=== PATIENT | male | born 1965 | race Caucasian/White ===

== ENCOUNTER 2017-11-16 16:34 | Inpatient (IN) | payer OTHER ==
[~2017-11-16] VITALS: Ht 188 cm; Wt 102.9 kg
[2017-11-16 16:40] VITALS: BP 126/81; PULSE 81; RESP 16; TEMP 98.5; O2SAT 99
[2017-11-16] MEDS ORDERED: OXYC1TAB63 PO (16:55)
[2017-11-16] MEDS ORDERED: SODIUM CHLOR 0.9% 1000 ML INJ 1,000 ML IV SCH (17:07)
[2017-11-16] MEDS ORDERED: MORPHINE SULFATE 4 MG/ML INJ IV PUSH ONE (17:15)
[2017-11-16] MEDS ORDERED: ONDANSETRON HCL 4 MG/2 ML VIAL IVP ONE (17:15)
[2017-11-16 17:28] VITALS: PULSE 70; RESP 18; O2SAT 97
--- NOTE | 2017-11-16 17:28 | PD ---
HPI Chief Complaint: Abdominal Pain Time Seen by Provider: 16:58 Travel History International Travel<30 days: No Contact w/Intl Traveler<30days: No Traveled to known affect area: No History of Present Illness HPI 52-year-old male that presents to the ED for evaluation of lower abdominal pain and bloating. Per patient she's had this for about 3-4 days now. Per patient he has no nausea and vomiting but he states that he gets psychiatric very easily. He states that he is also having bloody stools as well. A of internal hemorrhoids. Per patient about 2 weeks ago he was admitted at the hospital in the [place] and was told that he had diverticulitis with perforated bowel. Apparently per patient he was about to get surgery for the perforated bowel to the decided last minute not to do it. He was admitted for a couple days and given IV antibiotics with resolution of symptoms until 3-4 days ago. Per patient he denies any blood thinners. No urinary issues. He denies any chest pain or shortness of breath. Per patient the pain is not really severe as it was 2 weeks ago but does feel more like bloating. States that he did finish intact. Per patient his been currently 6 out of 10. No allergies to medication. Other medical issues at this time. Has never had a colonoscopy. PFSH Past Medical History Diverticulitis: Yes Tetanus Vaccination: Unknown Influenza Vaccination: No Past Surgical History Other Surgery: Yes (inguinal hernia and scrotal repair) Social History Alcohol Use: No Tobacco Use: No Substance Use: No Allergies-Medications (Allergen,Severity, Reaction): Coded Allergies: No Known Allergies (Unverified , 11/16/17) Reported Meds & Prescriptions Reported Meds & Active Scripts Active Reported Oxycodone-Acetaminophen 5-325 mg Tab 1 Tab PO Q6H PRN Review of Systems Except as stated in HPI: all other systems reviewed are Neg Physical Exam Narrative GENERAL: SKIN: Warm and dry. HEAD: Atraumatic. Normocephalic. EYES: Pupils equal and round. No scleral icterus. No injection or drainage. ENT: No nasal bleeding or discharge. Mucous membranes pink and moist. Tongue is midline. No uvula deviation. NECK: Trachea midline. No JVD. CARDIOVASCULAR: Regular rate and rhythm. No murmurs, S3, S4. RESPIRATORY: No accessory muscle use. Clear to auscultation. Breath sounds equal bilaterally. GASTROINTESTINAL: Abdomen soft, patient has reproducible pain on the lower abdomen with slight distention noted. Hepatic and splenic margins not palpable. MUSCULOSKELETAL: Extremities without clubbing, cyanosis, or edema. No obvious deformities. NEUROLOGICAL: Awake and alert. No obvious cranial nerve deficits. Motor grossly within normal limits. Five out of 5 muscle strength in the arms and legs. Normal speech. PSYCHIATRIC: Appropriate mood and affect; insight and judgment normal. Data Data Last Documented VS Vital Signs Date Time Temp Pulse Resp B/P (MAP) Pulse Ox O2 Delivery O2 Flow Rate FiO2 11/16/17 17:28 70 18 97 Room Air 11/16/17 16:40 98.5 126/81 (96) Orders Orders Complete Blood Count With Diff (11/16/17 17:07) Comprehensive Metabolic Panel (11/16/17 17:07) Lipase (11/16/17 17:07) Lactic Acid (11/16/17 17:07) Prothrombin Time / Inr (Pt) (11/16/17 17:07) Act Partial Throm Time (Ptt) (11/16/17 17:07) Urinalysis - C+S If Indicated (11/16/17 17:07) Ct Abd/Pel W Iv Contrast(Rout) (11/16/17 17:07) Iv Access Insert/Monitor (11/16/17 17:07) Ecg Monitoring (11/16/17 17:07) Oximetry (11/16/17 17:07) Morphine Inj (Morphine Inj) (11/16/17 17:15) Ondansetron Inj (Zofran Inj) (11/16/17 17:15) Sodium Chlor 0.9% 1000 Ml Inj (Ns 1000 M (11/16/17 17:07) Iohexol 350 Inj (Omnipaque 350 Inj) (11/16/17 19:07) Metronidazole 500 Mg Inj (Flagyl 500 Mg (11/16/17 20:00) Ciprofloxacin 400 Mg Premix (Cipro 400 M (11/16/17 20:00) Admit To Inpatient (11/16/17 ) Vital Signs (Adult) Q4H (11/16/17 19:54) Activity Oob With Assistance (11/16/17 19:54) Milling Machine Tender / Telemetry .CONTINUOUS (11/16/17 19:54) Diet Npo (11/17/17 Breakfast) Sodium Chlor 0.9% 1000 Ml Inj (Ns 1000 M (11/16/17 19:54) Sodium Chloride 0.9% Flush (Ns Flush) (11/16/17 20:00) Sodium Chloride 0.9% Flush (Ns Flush) (11/16/17 21:00) Ondansetron Inj (Zofran Inj) (11/16/17 20:00) Basic Metabolic Panel (Bmp) (11/17/17 06:00) Complete Blood Count With Diff (11/17/17 06:00) Case Management Consult (11/16/17 19:54) Naloxone Inj (Narcan Inj) (11/16/17 20:00) Inpatient Certification (11/16/17 ) Admit Order (Ed Use Only) (11/16/17 19:55) Labs Laboratory Tests Test 11/16/17 17:05 11/16/17 17:18 White Blood Count 10.7 TH/MM3 Red Blood Count 4.57 MIL/MM3 Hemoglobin 13.4 GM/DL Hematocrit 39.7 % Mean Corpuscular Volume 86.8 FL Mean Corpuscular Hemoglobin 29.3 PG Mean Corpuscular Hemoglobin Concent 33.7 % Red Cell Distribution Width 13.9 % Platelet Count 338 TH/MM3 Mean Platelet Volume 8.8 FL Neutrophils (%) (Auto) 67.0 % Lymphocytes (%) (Auto) 25.4 % Monocytes (%) (Auto) 5.7 % Eosinophils (%) (Auto) 1.2 % Basophils (%) (Auto) 0.7 % Neutrophils # (Auto) 7.1 TH/MM3 Lymphocytes # (Auto) 2.7 TH/MM3 Monocytes # (Auto) 0.6 TH/MM3 Eosinophils # (Auto) 0.1 TH/MM3 Basophils # (Auto) 0.1 TH/MM3 CBC Comment DIFF FINAL Differential Comment Prothrombin Time 10.7 SEC Prothromb Time International Ratio 1.1 RATIO Activated Partial Thromboplast Time 27.8 SEC Blood Urea Nitrogen 10 MG/DL Creatinine 1.12 MG/DL Random Glucose 90 MG/DL Total Protein 7.9 GM/DL Albumin 3.8 GM/DL Calcium Level 9.2 MG/DL Alkaline Phosphatase 80 U/L Aspartate Amino Transf (AST/SGOT) 17 U/L Alanine Aminotransferase (ALT/SGPT) 35 U/L Total Bilirubin 0.3 MG/DL Sodium Level 136 MEQ/L Potassium Level 4.3 MEQ/L Chloride Level 102 MEQ/L Carbon Dioxide Level 26.5 MEQ/L Anion Gap 8 MEQ/L Estimat Glomerular Filtration Rate 69 ML/MIN Lipase 70 U/L Lactic Acid Level 0.6 mmol/L MDM Medical Decision Making Medical Screen Exam Complete: Yes Emergency Medical Condition: Yes Medical Record Reviewed: Yes Interpretation(s) CBC & BMP Diagram 11/16/17 17:05 Total Protein 7.9, Albumin 3.8, Calcium Level 9.2, Alkaline Phosphatase 80, Aspartate Amino Transf (AST/SGOT) 17, Alanine Aminotransferase (ALT/SGPT) 35, Total Bilirubin 0.3 lactic acid WNL Last Impressions Abdomen/Pelvis CT 11/16/17 1707 Signed Impressions: Service Date/Time: , November 16, 2017 18:51 - CONCLUSION: 1. Distal left colonic stricture which is associated with a colonic mass and adjacent soft tissue nodules are as measured above. Primary differential diagnosis is a colonic malignancy. Cannot exclude a complicated diverticulitis. There is dilatation of the colon proximal to the obstruction. Small bowel also mildly dilated. Rick Hercules MD Differential Diagnosis Acute abdomen versus perforated bowel versus diverticulitis versus abscess versus colitis Narrative Course 52-year-old male that presents to the ED for evaluation of lower abdominal pain and bloating. Patient was properly examined and was found to have signs and symptoms concerning for diverticulitis. The family concerning for perforated bowel from history this in the past. Labs and imaging ordered. Patient was started on IV medications. Labs and imaging showed what appears to be partial obstruction secondary to what appears to be possible mass versus complicated diverticulitis per radiologist report. Unclear as to which one he could be as patient does not really have a lot of secondhand the sign or signs of infection other than the history of previous diverticulitis 2 weeks ago with perforated bowel. And trying to get the medical records from the [place]. At this time recommendation is for admission for further eval. I will start patient on antibiotics for possible complicated diverticulitis. Patient agrees with admission. Patient was admitted to Dr. Mcclelland who agreed to admission. Diagnosis Primary Impression: Partial intestinal obstruction Qualified Codes: K56.690 - Other partial intestinal obstruction Additional Impressions: Mass of colon Diverticulitis large intestine Qualified Codes: K57.33 - Diverticulitis of large intestine without perforation or abscess with bleeding Admitting Information Admitting Physician Requests: Admit Pratik Sauceda Nov 16, 2017 17:28
[2017-11-16 17:47] LABS: AUTOMATED NEUTROPHIL # 7.1 TH/MM3 (1.8-7.7); BASOPHIL # 0.1 TH/MM3 (0-0.2); BASOPHIL % 0.7 % (0.0-2.0); EOSINOPHIL # 0.1 TH/MM3 (0-0.4); EOSINOPHIL % 1.2 % (0.0-4.0); HEMATOCRIT 39.7 % (39.0-51.0); HEMOGLOBIN 13.4 GM/DL (13.0-17.0); LYMPH % 25.4 % (9.0-44.0); LYMPHOCYTE # 2.7 TH/MM3 (1.0-4.8); MEAN CELL VOLUME 86.8 FL (80.0-100.0); MEAN CORPUSCULAR HEMOGLOBIN 29.3 PG (27.0-34.0); MEAN CORPUSCULAR HGB CONC 33.7 % (32.0-36.0); MEAN PLATELET VOLUME 8.8 FL (7.0-11.0); MONO % 5.7 % (0.0-8.0); MONOCYTE # 0.6 TH/MM3 (0-0.9); PLATELET COUNT 338 TH/MM3 (150-450); RED BLOOD COUNT 4.57 MIL/MM3 (4.50-5.90); RED CELL DISTRIBUTION WIDTH 13.9 % (11.6-17.2); WHITE BLOOD COUNT 10.7 TH/MM3 (4.0-11.0)
[2017-11-16 17:58] LABS: ALBUMIN 3.8 GM/DL (3.4-5.0); BICARBONATE 26.5 MEQ/L (21.0-32.0); BLOOD UREA NITROGEN 10 MG/DL (7-18); CALCIUM 9.2 MG/DL (8.5-10.1); CHLORIDE 102 MEQ/L (98-107); CREATININE 1.12 MG/DL (0.60-1.30); GLOMERULAR FILTRATION RATE 69 ML/MIN (>89); GLUCOSE,RANDOM 90 MG/DL (74-106); SODIUM (NA) 136 MEQ/L (136-145)
[2017-11-16 17:59] LABS: ALT (GPT) 35 U/L (12-78); AST (GOT) 17 U/L (15-37)
[2017-11-16 18:01] LABS: ALKALINE PHOSPHATASE 80 U/L (45-117); TOTAL BILIRUBIN ADULT 0.3 MG/DL (0.2-1.0); TOTAL PROTEIN 7.9 GM/DL (6.4-8.2)
[2017-11-16 18:37] LABS: INTERNATIONAL NORMALIZED RATIO 1.1 RATIO; PROTHROMBIN TIME - PATIENT 10.7 SEC (9.8-11.6)
[2017-11-16] MEDS ORDERED: IOHEXOL 350 MG/ML 10 ML VIAL (for RAD DIAG) IVCONTRAST ONE (19:07)
--- NOTE | 2017-11-16 19:32 | RADRPT ---
EXAM DATE/TIME: 11/16/2017 18:51 [facility] COMPARISON: No previous studies available for comparison. INDICATIONS : Patient complains of abdominal pain, history of diverticulitis and small perforation. IV CONTRAST: 95 cc Omnipaque 350 (iohexol) IV ORAL CONTRAST: No oral contrast ingested. RADIATION DOSE: 15.10 CTDIvol (mGy) ; Patient body habitus MEDICAL HISTORY : Diverticulitis. SURGICAL HISTORY : None. ENCOUNTER: Initial ACUITY: 2 days PAIN SCALE: 8/10 LOCATION: lower quadrant abdomen TECHNIQUE: Volumetric scanning of the abdomen and pelvis was performed. Using automated exposure control and ad justment of the mA and/or kV according to patient size, radiation dose was kept as low as reasonably achievable to obtain optimal diagnostic quality images. DICOM format image data is available electro nically for review and comparison. FINDINGS: There is a colonic stricture in the distal left colon near the junction with the sigmoid colon. This is associated with a soft tissue mass as well as surrounding diverticula. There is a 2.6 cm soft tiss ue nodule in the midline near the colonic mass as well as a 1.9 cm nodule on the left side of the mas s. There is at least a partial colonic obstruction with dilatation of the colon proximal to the stric ture. Lung bases are clear. No acute findings in the liver, spleen, adrenals, kidneys or pancreas. No acute bony abnormality. CONCLUSION: 1. Distal left colonic stricture which is associated with a colonic mass and adjacent soft tissue nod ules are as measured above. Primary differential diagnosis is a colonic malignancy. Cannot exclude a complicated diverticulitis. There is dilatation of the colon proximal to the obstruction. Small bowel also mildly dilated. Rick Hercules MD on November 16, 2017 at 19:26 Board Certified Radiologist. This report was verified electronically.
[2017-11-16] MEDS ORDERED: SODIUM CHLORIDE 0.9% FLUSH 10 ML FLUSH IV FLUSH PRN (20:00)
[2017-11-16] MEDS ORDERED: CIPROFLOXACIN 400 MG PREMIX 200 ML IV ONE (20:00)
[2017-11-16] MEDS ORDERED: metroNIDAZOLE 500 MG INJ 100 ML IV ONE (20:00)
[2017-11-16] MEDS ORDERED: NALOXONE HCL 0.4 MG/ML AMP IV PUSH PRN (20:00)
[2017-11-16] MEDS: SODIUM CHLOR 0.9% 1000 ML INJ 1,000 ML IV SCH (20:16)
--- NOTE | 2017-11-16 20:18 | PD ---
Physical Exam Date Seen by Provider: Nov 16, 2017 Narrative This patient presents with chief complaint of left lower quadrant abdominal pain. Data Data Last Documented VS Vital Signs Date Time Temp Pulse Resp B/P (MAP) Pulse Ox O2 Delivery O2 Flow Rate FiO2 11/16/17 17:28 70 18 97 Room Air 11/16/17 16:40 98.5 126/81 (96) Orders Orders Complete Blood Count With Diff (11/16/17 17:07) Comprehensive Metabolic Panel (11/16/17 17:07) Lipase (11/16/17 17:07) Lactic Acid (11/16/17 17:07) Prothrombin Time / Inr (Pt) (11/16/17 17:07) Act Partial Throm Time (Ptt) (11/16/17 17:07) Urinalysis - C+S If Indicated (11/16/17 17:07) Ct Abd/Pel W Iv Contrast(Rout) (11/16/17 17:07) Iv Access Insert/Monitor (11/16/17 17:07) Ecg Monitoring (11/16/17 17:07) Oximetry (11/16/17 17:07) Morphine Inj (Morphine Inj) (11/16/17 17:15) Ondansetron Inj (Zofran Inj) (11/16/17 17:15) Sodium Chlor 0.9% 1000 Ml Inj (Ns 1000 M (11/16/17 17:07) Iohexol 350 Inj (Omnipaque 350 Inj) (11/16/17 19:07) Metronidazole 500 Mg Inj (Flagyl 500 Mg (11/16/17 20:00) Ciprofloxacin 400 Mg Premix (Cipro 400 M (11/16/17 20:00) Admit To Inpatient (11/16/17 ) Vital Signs (Adult) Q4H (11/16/17 19:54) Activity Oob With Assistance (11/16/17 19:54) Compressor House Operator / Telemetry .CONTINUOUS (11/16/17 19:54) Diet Npo (11/17/17 Breakfast) Sodium Chlor 0.9% 1000 Ml Inj (Ns 1000 M (11/16/17 19:54) Sodium Chloride 0.9% Flush (Ns Flush) (11/16/17 20:00) Sodium Chloride 0.9% Flush (Ns Flush) (11/16/17 21:00) Ondansetron Inj (Zofran Inj) (11/16/17 20:00) Basic Metabolic Panel (Bmp) (11/17/17 06:00) Complete Blood Count With Diff (11/17/17 06:00) Case Management Consult (11/16/17 19:54) Naloxone Inj (Narcan Inj) (11/16/17 20:00) Inpatient Certification (11/16/17 ) Admit Order (Ed Use Only) (11/16/17 19:55) Ciprofloxacin 400 Mg Premix (Cipro 400 M (11/17/17 08:00) Metronidazole 500 Mg Inj (Flagyl 500 Mg (11/17/17 02:00) Consult Gastroenterology (11/16/17 ) Morphine Inj (Morphine Inj) (11/16/17 20:15) Labs Laboratory Tests Test 11/16/17 17:05 11/16/17 17:18 White Blood Count 10.7 TH/MM3 Red Blood Count 4.57 MIL/MM3 Hemoglobin 13.4 GM/DL Hematocrit 39.7 % Mean Corpuscular Volume 86.8 FL Mean Corpuscular Hemoglobin 29.3 PG Mean Corpuscular Hemoglobin Concent 33.7 % Red Cell Distribution Width 13.9 % Platelet Count 338 TH/MM3 Mean Platelet Volume 8.8 FL Neutrophils (%) (Auto) 67.0 % Lymphocytes (%) (Auto) 25.4 % Monocytes (%) (Auto) 5.7 % Eosinophils (%) (Auto) 1.2 % Basophils (%) (Auto) 0.7 % Neutrophils # (Auto) 7.1 TH/MM3 Lymphocytes # (Auto) 2.7 TH/MM3 Monocytes # (Auto) 0.6 TH/MM3 Eosinophils # (Auto) 0.1 TH/MM3 Basophils # (Auto) 0.1 TH/MM3 CBC Comment DIFF FINAL Differential Comment Prothrombin Time 10.7 SEC Prothromb Time International Ratio 1.1 RATIO Activated Partial Thromboplast Time 27.8 SEC Blood Urea Nitrogen 10 MG/DL Creatinine 1.12 MG/DL Random Glucose 90 MG/DL Total Protein 7.9 GM/DL Albumin 3.8 GM/DL Calcium Level 9.2 MG/DL Alkaline Phosphatase 80 U/L Aspartate Amino Transf (AST/SGOT) 17 U/L Alanine Aminotransferase (ALT/SGPT) 35 U/L Total Bilirubin 0.3 MG/DL Sodium Level 136 MEQ/L Potassium Level 4.3 MEQ/L Chloride Level 102 MEQ/L Carbon Dioxide Level 26.5 MEQ/L Anion Gap 8 MEQ/L Estimat Glomerular Filtration Rate 69 ML/MIN Lipase 70 U/L Lactic Acid Level 0.6 mmol/L MDM Supervised Visit with [facility]: Yes Narrative Course I, Dr. Mesa, have reviewed the advance practice practitioner's documentation and am in agreement, met with the patient face to face, made the diagnosis, and the medical decision making was done by me. *My assessment and Findings: Patient is awake and alert and does not appear to be in any acute distress. He does have left lower quadrant tenderness with localized guarding. See KLAUDIA Chowdhury-[facility] note for lab and radiology results, final diagnosis and disposition Diagnosis Primary Impression: Partial intestinal obstruction Qualified Codes: K56.690 - Other partial intestinal obstruction Additional Impressions: Mass of colon Diverticulitis large intestine Qualified Codes: K57.33 - Diverticulitis of large intestine without perforation or abscess with bleeding Sailaja Mesa MD Nov 16, 2017 20:18
[2017-11-16 20:57] VITALS: BP 131/83; PULSE 73; RESP 16; O2SAT 100
--- NOTE | 2017-11-16 21:24 | HHI.HP ---
[facility] Admission Diagnosis partial bowel obstruction, mass vs complicated diverticulitis Diagnoses: (1) Partial intestinal obstruction (2) Mass of colon (3) Diverticulitis large intestine Chief Complaint: Abdominal distention and pain Travel History International Travel<30 Days: No Contact w/Intl Traveler <30 Da: No Traveled to Known Affected Are: No History of Present Illness Mr. Ordoñez is a pleasant 52-year-old male with a history of degenerative disc disease and recent hospitalization for diverticulitis at the [facility] in [place] who presented to the ER on 11/16/2017 for evaluation of progressively worsening abdominal pain, distention, and hematochezia. Abdomen/pelvis CT scan in the emergency room shows distal left colonic stricture associated with colonic mass with adjacent soft tissue nodules and dilation of the colon proximal to the obstruction along with small bowel mild distention. The patient is seen in the emergency room. He states that on 10/29/2018, he went to the [facility] in [place] for abdominal pain and was admitted for 4 days after being diagnosed with diverticulitis with microperforation. He states that there was some discussion about possibly doing surgery but this was never done and he is not exactly sure why. He ran a fever on the date of admission 10/29 of 102.4 but has been afebrile since. For the past 2-3 days, he has been noting abdominal bloating which has progressively worsened and became extremely painful by Monday. He also noted hematochezia. On Monday he had dry heaves once denies any nausea or vomiting and has had no further episodes of dry heaves. He does report weight loss of 20-25 pounds in the last 3 weeks. He has some scant records available for review from the [facility] which show that he was taking amoxicillin and oxycodone 5 upon discharge from the hospital. No imaging records were available for review. He denies any chest pain or shortness of breath. Review of Systems Except as stated in HPI: all other systems reviewed are Neg Past Family Social History Past Medical History Degenerative disc disease -chronic back pain Denies diabetes mellitus, hypertension, respiratory problems, coronary artery disease, irregular heart rhythm such as atrial fibrillation, liver problems, kidney problems, DVT, PE, stroke, seizure, hypothyroidism, or cancer . Past Surgical History Left inguinal hernia repair Left scrotal reconstruction sometime in mid 90s . Reported Medications Reported Meds & Active Scripts Active Reported Oxycodone-Acetaminophen 5-325 mg Tab 1 Tab PO Q6H PRN Amoxicillin Clotrimazole . Allergies: Coded Allergies: No Known Allergies (Unverified , 11/16/17) Active Ordered Medications Current Medications Morphine Sulfate (Morphine Inj) 4 mg ONCE ONCE IV PUSH Last administered on at 17:33; Start 11/16/17 at 17:15; Stop 11/16/17 at 17:17; Status DC Ondansetron HCl (Zofran Inj) 4 mg ONCE ONCE IVP Last administered on at 17:33; Start 11/16/17 at 17:15; Stop 11/16/17 at 17:17; Status DC Sodium Chloride 1,000 ml @ 1,000 mls/hr Q1H IV Last administered on 11/16/17at 17:33; Start 11/16/17 at 17:07; Stop 11/16/17 at 18:06; Status DC Iohexol (Omnipaque 350 Inj) 95 ml STK-MED ONCE IVCONTRAST Last administered on 11/16/17 19:07; Start 11/16/17 at 19:07; Stop 11/16/17 at 19:08; Status DC Metronidazole 100 ml @ 100 mls/hr ONCE ONCE IV Last administered on 20:15; Start 11/16/17 at 20:00; Stop 11/16/17 at 20:59; Status DC Ciprofloxacin/ Dextrose 200 ml @ 200 mls/hr ONCE ONCE IV Last administered on 11/16/17 20:15; Start 11/16/17 at 20:00; Stop 11/16/17 at 20:59; Status DC Sodium Chloride 1,000 ml @ 100 mls/hr Q10H IV Last administered on 11/16/17at 20:16; Start 11/16/17 at 19:54 Sodium Chloride (NS Flush) 2 ml UNSCH PRN IV FLUSH FLUSH AFTER USING IV ACCESS ; Start 11/16/17 at 20:00 Sodium Chloride (NS Flush) 2 ml BID IV FLUSH ; Start 11/16/17 at 21:00 Ondansetron HCl (Zofran Inj) 4 mg Q6H PRN IVP NAUSEA OR VOMITING; Start at 20:00 Naloxone HCl (Narcan Inj) 0.4 mg UNSCH PRN IV PUSH SEE LABEL COMMENTS; Start at 20:00 Ciprofloxacin/ Dextrose 200 ml @ 200 mls/hr Q12H IV ; Start 11/17/17 at 08:00 Metronidazole 100 ml @ 100 mls/hr Q6H IV ; Start 11/17/17 at 02:00 Morphine Sulfate (Morphine Inj) 2 mg Q3H PRN IV PUSH pain >5; Start 11/16/17 at 20:15 Family History Mother with leukemia in her 40s, currently alive with dementia Father alive and well 2 sisters alive and well . Social History Tobacco: Never smoked Alcohol: Rare social alcohol use Illicit Drugs: Denies . Physical Exam Vital Signs Vital Signs Date Time Temp Pulse Resp B/P (MAP) Pulse Ox O2 Delivery O2 Flow Rate FiO2 11/16/17 20:57 73 16 131/83 (99) 100 Room Air 11/16/17 17:28 70 18 97 Room Air 11/16/17 16:40 98.5 81 16 126/81 (96) 99 Physical Exam CONSTITUTIONAL: This is a well-nourished, well-developed patient, in no apparent distress. INTEGUMENTARY: No rashes, ecchymoses or lesions. Cool and dry. HEAD: Atraumatic. Normocephalic. EYES: No scleral icterus. No injection or drainage. ENT: Nose without bleeding, purulent drainage. NECK: Trachea midline. No JVD or lymphadenopathy. CARDIOVASCULAR: Regular rate and rhythm without murmurs, gallops, or rubs. RESPIRATORY: Clear to auscultation. Breath sounds equal bilaterally. No wheezes , rales, or rhonchi. GASTROINTESTINAL: Abdomen with active bowel sounds; soft but distended; tender with lower abdominal palpation. No guarding. MUSCULOSKELETAL: Extremities without clubbing, cyanosis, or edema. No calf tenderness. NEUROLOGICAL: Awake and alert. Motor and sensory grossly within normal limits. Normal speech. . Laboratory Laboratory Tests Test 11/16/17 17:05 11/16/17 17:18 White Blood Count 10.7 Red Blood Count 4.57 Hemoglobin 13.4 Hematocrit 39.7 Mean Corpuscular Volume 86.8 Mean Corpuscular Hemoglobin 29.3 Mean Corpuscular Hemoglobin Concent 33.7 Red Cell Distribution Width 13.9 Platelet Count 338 Mean Platelet Volume 8.8 Neutrophils (%) (Auto) 67.0 Lymphocytes (%) (Auto) 25.4 Monocytes (%) (Auto) 5.7 Eosinophils (%) (Auto) 1.2 Basophils (%) (Auto) 0.7 Neutrophils # (Auto) 7.1 Lymphocytes # (Auto) 2.7 Monocytes # (Auto) 0.6 Eosinophils # (Auto) 0.1 Basophils # (Auto) 0.1 CBC Comment DIFF FINAL Differential Comment Prothrombin Time 10.7 Prothromb Time International Ratio 1.1 Activated Partial Thromboplast Time 27.8 Blood Urea Nitrogen 10 Creatinine 1.12 Random Glucose 90 Total Protein 7.9 Albumin 3.8 Calcium Level 9.2 Alkaline Phosphatase 80 Aspartate Amino Transf (AST/SGOT) 17 Alanine Aminotransferase (ALT/SGPT) 35 Total Bilirubin 0.3 Sodium Level 136 Potassium Level 4.3 Chloride Level 102 Carbon Dioxide Level 26.5 Anion Gap 8 Estimat Glomerular Filtration Rate 69 Lipase 70 Lactic Acid Level 0.6 Result Diagram: 11/16/17170411/16/171704 Caprini VTE Risk Assessment Caprini VTE Risk Assessment: Mod/High Risk (score >= 2) Caprini Risk Assessment Model Point Value = 1 Point Value = 2 Point Value = 3 Point Value = 5 Age 41-60 Minor surgery BMI > 25 kg/m2 Swollen legs Varicose veins or History of unexplained or recurrent spontaneous Oral contraceptives or hormone replacement Sepsis (< 1 month) Serious lung disease, including pneumonia (< 1 month) Abnormal pulmonary function Acute myocardial infarction Congestive heart failure (< 1 month) History of inflammatory bowel disease Medical patient at bed rest Age 61-74 Arthroscopic surgery Major open surgery (> 45 min) Laparoscopic surgery (> 45 min) Malignancy Confined to bed (> 72 hours) Immobilizing plaster cast Central venous access Age >= 75 History of VTE Family history of VTE Factor V Leiden Prothrombin [id number] Lupus anticoagulant Anticardiolipin antibodies Elevated serum homocysteine Heparin-induced thrombocytopenia Other congenital or acquired thrombophilia Stroke (< 1 month) Elective arthroplasty Hip, pelvis, or leg fracture Acute spinal cord injury (< 1 month) Prophylaxis Regimen Total Risk Factor Score Risk Level Prophylaxis Regimen 0-1 Low Early ambulation 2 Moderate Order ONE of the following: *Sequential Compression Device (SCD) *Heparin 5000 units SQ BID 3-4 Higher Order ONE of the following medications: *Heparin 5000 units SQ TID *Enoxaparin/Lovenox 40 mg SQ daily (WT < 150 kg, CrCl > 30 mL/min) *Enoxaparin/Lovenox 30 mg SQ daily (WT < 150 kg, CrCl > 10-29 mL/min) *Enoxaparin/Lovenox 30 mg SQ BID (WT < 150 kg, CrCl > 30 mL/min) AND/OR *Sequential Compression Device (SCD) 5 or more Highest Order ONE of the following medications: *Heparin 5000 units SQ TID (Preferred with Epidurals) *Enoxaparin/Lovenox 40 mg SQ daily (WT < 150 kg, CrCl > 30 mL/min) *Enoxaparin/Lovenox 30 mg SQ daily (WT < 150 kg, CrCl > 10-29 mL/min) *Enoxaparin/Lovenox 30 mg SQ BID (WT < 150 kg, CrCl > 30 mL/min) AND *Sequential Compression Device (SCD) Assessment and Plan Problem List: (1) Partial intestinal obstruction ICD Code: K56.600 - Partial intestinal obstruction, unspecified as to cause Status: Acute (2) Mass of colon ICD Code: K63.9 - Disease of intestine, unspecified Status: Acute (3) Diverticulitis large intestine ICD Code: K57.32 - Diverticulitis of large intestine without perforation or abscess without bleeding Status: Acute Assessment and Plan Mr. Ordoñez is a pleasant 52-year-old male with a history of degenerative disc disease and recent hospitalization for diverticulitis at the [facility] in [place] who presented to the ER on 11/16/2017 for evaluation of progressively worsening abdominal pain, distention, and hematochezia. Abdomen/pelvis CT scan in the emergency room shows distal left colonic stricture associated with colonic mass with adjacent soft tissue nodules and dilation of the colon proximal to the obstruction along with small bowel mild distention. Partial intestinal obstruction - colonic mass versus complicated diverticulitis -Abdomen/pelvis CT scan in the emergency room shows distal left colonic stricture associated with colonic mass with adjacent soft tissue nodules and dilation of the colon proximal to the obstruction along with small bowel mild distention -CBC and CMP within normal parameters -patient is afebrile with normal vital signs -Antibiotics: IV Metronidazole and Ciprofloxacin -NPO -Gastroenterology consultation - appreciate assistance -IV fluid hydration with normal saline at 100 cc/h -Analgesia with morphine 2 mg IV push every 3 hours as needed for pain DVT prophylaxis -SCDs/teds Discussed Condition With Patient and Dr. Mcclelland Physician Certification 2 Midnight Certification Type: Admission for Inpatient Services Order for Inpatient Services The services are ordered in accordance with Medicare regulations or non- Medicare payer requirements, as applicable. In the case of services not specified as inpatient-only, they are appropriately provided as inpatient services in accordance with the 2-midnight benchmark. Estimated LOS (days): 3 days is the estimated time the patient will need to remain in the hospital, assuming treatment plan goals are met and no additional complications. Post-Hospital Plan: Home Problem Qualifiers (1) Partial intestinal obstruction: Qualified Codes: K56.690 - Other partial intestinal obstruction (2) Diverticulitis large intestine: Qualified Codes: K57.33 - Diverticulitis of large intestine without perforation or abscess with bleeding Sheyla Avila Nov 16, 2017 21:24
[2017-11-16] MEDS: SODIUM CHLORIDE 0.9% FLUSH 10 ML FLUSH IV FLUSH SCH (21:26)
[2017-11-16 22:47] VITALS: BP 135/77; PULSE 73; RESP 17; TEMP 99; O2SAT 98
[2017-11-17] VITALS (8 sets, daily range): BP systolic 100–152; BP diastolic 54–91; PULSE 62–71; RESP 17–20; TEMP 98–98.9; O2SAT 97–100
[2017-11-17] MEDS: MORPHINE SULFATE 2 MG/ML INJ IV PUSH PRN ×4 (00:03→18:28)
[2017-11-17] MEDS: metroNIDAZOLE 500 MG INJ 100 ML IV SCH ×4 (03:09→23:02)
[2017-11-17] MEDS: SODIUM CHLOR 0.9% 1000 ML INJ 1,000 ML IV SCH ×2 (07:10→14:07)
[2017-11-17 07:34] LABS: AUTOMATED NEUTROPHIL # 6.6 TH/MM3 (1.8-7.7); BASOPHIL # 0.1 TH/MM3 (0-0.2); BASOPHIL % 0.6 % (0.0-2.0); EOSINOPHIL # 0.1 TH/MM3 (0-0.4); EOSINOPHIL % 1.2 % (0.0-4.0); HEMATOCRIT 36.6 % (39.0-51.0); HEMOGLOBIN 12.4 GM/DL (13.0-17.0); LYMPH % 19.6 % (9.0-44.0); LYMPHOCYTE # 1.8 TH/MM3 (1.0-4.8); MEAN CELL VOLUME 85.5 FL (80.0-100.0); MEAN CORPUSCULAR HGB CONC 33.9 % (32.0-36.0); MEAN PLATELET VOLUME 8.9 FL (7.0-11.0); MONO % 5.5 % (0.0-8.0); MONOCYTE # 0.5 TH/MM3 (0-0.9); NEUT % 73.1 % (16.0-70.0); PLATELET COUNT 290 TH/MM3 (150-450); RED BLOOD COUNT 4.28 MIL/MM3 (4.50-5.90)
[2017-11-17] MEDS: CIPROFLOXACIN 400 MG PREMIX 200 ML IV SCH ×2 (07:36→23:02)
[2017-11-17] MEDS: SODIUM CHLORIDE 0.9% FLUSH 10 ML FLUSH IV FLUSH SCH ×2 (07:41→21:00)
[2017-11-17 07:49] LABS: BICARBONATE 27.2 MEQ/L (21.0-32.0); CALCIUM 8.8 MG/DL (8.5-10.1); CREATININE 1.01 MG/DL (0.60-1.30)
--- NOTE | 2017-11-17 12:09 | PD.CONS ---
HPI History of Present Illness This is a 52 year old M who denies any significant PMH until recently. recently admitted to [facility] in [place] in the beginning of this month for diverticulitis with microperforation. Pts complaints prior to that admission were bloody stools and LLQ pain. was placed on abx, symptoms resolved and he was having normal BMs. Pt presented to [place] yesterday with complaints of thin, dark bloody stools that he began noticing on Monday with a decrease in appetite. has barely been able to eat anything due to increased satiety. Also complaining of diffuse abdominal pain that began on Monday which he states today seems to be more localized to his LLQ. Does feel his abdomen is a little bit more distended. Denies nausea, vomiting. States a 20 lb weight loss over the past month. Denies ever having EGD or colonoscopy. Denies family history significant for colon cancer. Denies ETOH, smoking, NSAIDs. CT abdomen and pelvis (11/16) --> Distal left colonic stricture which is associated with a colonic mass and adjacent soft tissue nodules are as measured above. Primary differential diagnosis is a colonic malignancy. Cannot exclude a complicated diverticulitis. There is dilatation of the colon proximal to the obstruction. Small bowel also mildly dilated. Pt reports last BM was Monday night, did have some flatus this morning. (Kinga Garcia) PFSH Past Medical History Degenerative disc disease Diverticulitis . Past Surgical History Left inguinal hernia repair Left scrotal reconstruction sometime in mid 90s . (Kinga Garcia) Coded Allergies: No Known Allergies (Unverified , 11/16/17) Family History Mother with leukemia in her 40s, currently alive with dementia Father alive and well 2 sisters alive and well . Social History Tobacco: Never smoked Alcohol: Denies Illicit Drugs: Denies . (Kinga Garcia) Review of Systems Gastrointestinal: COMPLAINS OF: Abdominal pain, Black stools, Bloody stools, Diarrhea, Anorexia, Swelling of Abdomen, DENIES: Constipation, Nausea, Vomiting , Difficulty Swallowing, Odynophagia, Heartburn, Hematemesis (Kinga Garcia) GI Exam Vitals I&O Vital Signs Date Time Temp Pulse Resp B/P (MAP) Pulse Ox O2 Delivery O2 Flow Rate FiO2 11/17/17 09:50 63 3/23/18 08:00 98.0 68 18 152/91 (111) 98 11/17/17 04:58 98.4 68 17 147/71 (96) 98 11/17/17 00:41 98.9 70 17 121/65 (83) 100 11/16/17 22:47 99.0 73 17 135/77 (96) 98 11/16/17 20:57 73 16 131/83 (99) 100 Room Air 11/16/17 17:28 70 18 97 Room Air 11/16/17 16:40 98.5 81 16 126/81 (96) 99 I/O 11/16/17 11/16/17 11/16/17 11/17/17 11/17/17 11/17/17 07:00 15:00 23:00 07:00 15:00 23:00 Intake Total 2300 ml 300 ml Balance 2300 ml 300 ml Intake IV Total 2300 ml 300 ml # Voids 2 Imaging Last Impressions Abdomen/Pelvis CT 11/16/17 1707 Signed Impressions: Service Date/Time: October 18:51 - CONCLUSION: 1. Distal left colonic stricture which is associated with a colonic mass and adjacent soft tissue nodules are as measured above. Primary differential diagnosis is a colonic malignancy. Cannot exclude a complicated diverticulitis. There is dilatation of the colon proximal to the obstruction. Small bowel also mildly dilated. Rick Hercules MD Laboratory Test 11/16/17 17:05 11/16/17 17:18 11/17/17 06:13 White Blood Count 10.7 TH/MM3 9.0 TH/MM3 Red Blood Count 4.57 MIL/MM3 4.28 MIL/MM3 Hemoglobin 13.4 GM/DL 12.4 GM/DL Hematocrit 39.7 % 36.6 % Mean Corpuscular Volume 86.8 FL 85.5 FL Mean Corpuscular Hemoglobin 29.3 PG 29.0 PG Mean Corpuscular Hemoglobin Concent 33.7 % 33.9 % Red Cell Distribution Width 13.9 % 14.0 % Platelet Count 338 TH/MM3 290 TH/MM3 Mean Platelet Volume 8.8 FL 8.9 FL Neutrophils (%) (Auto) 67.0 % 73.1 % Lymphocytes (%) (Auto) 25.4 % 19.6 % Monocytes (%) (Auto) 5.7 % 5.5 % Eosinophils (%) (Auto) 1.2 % 1.2 % Basophils (%) (Auto) 0.7 % 0.6 % Neutrophils # (Auto) 7.1 TH/MM3 6.6 TH/MM3 Lymphocytes # (Auto) 2.7 TH/MM3 1.8 TH/MM3 Monocytes # (Auto) 0.6 TH/MM3 0.5 TH/MM3 Eosinophils # (Auto) 0.1 TH/MM3 0.1 TH/MM3 Basophils # (Auto) 0.1 TH/MM3 0.1 TH/MM3 CBC Comment DIFF FINAL DIFF FINAL Differential Comment Prothrombin Time 10.7 SEC Prothromb Time International Ratio 1.1 RATIO Activated Partial Thromboplast Time 27.8 SEC Blood Urea Nitrogen 10 MG/DL 7 MG/DL Creatinine 1.12 MG/DL 1.01 MG/DL Random Glucose 90 MG/DL 98 MG/DL Total Protein 7.9 GM/DL Albumin 3.8 GM/DL Calcium Level 9.2 MG/DL 8.8 MG/DL Alkaline Phosphatase 80 U/L Aspartate Amino Transf (AST/SGOT) 17 U/L Alanine Aminotransferase (ALT/SGPT) 35 U/L Total Bilirubin 0.3 MG/DL Sodium Level 136 MEQ/L 137 MEQ/L Potassium Level 4.3 MEQ/L 4.3 MEQ/L Chloride Level 102 MEQ/L 104 MEQ/L Carbon Dioxide Level 26.5 MEQ/L 27.2 MEQ/L Anion Gap 8 MEQ/L 6 MEQ/L Estimat Glomerular Filtration Rate 69 ML/MIN 78 ML/MIN Lipase 70 U/L Lactic Acid Level 0.6 mmol/L Physical Examination HEENT: Normocephalic; atraumatic CHEST: Even/unlabored CARDIAC: RRR ABDOMEN: Mildly distended, soft, LLQ tenderness, bowel sounds active EXTREMITIES: No clubbing, cyanosis, or edema. SKIN: Normal; no rash; no jaundice. VENEER MEASURER: No focal deficits; alert and oriented times three. (Kinga Garcia) Assessment and Plan Plan Assessment: - Change in bowel habits- reports on Monday he noticed his BMs to be thin and bloody, has not had BM since Monday night, (+) flatus. Admitted to [facility] in [place] in beginning of October for diverticulitis with microperforation. Was having hematochezia and LLQ prior to that admission. States symptoms resolved and began again on Monday. H/H currently stable. - Unintentional weight loss- 20 lbs over the past month - Decreased appetite states secondary to increased satiety Pt denies ever having EGD or colonoscopy. Denies family history significant for colon cancer CT abdomen and pelvis noted (11/16) --> Distal left colonic stricture which is associated with a colonic mass and adjacent soft tissue nodules are as measured above. Primary differential diagnosis is a colonic malignancy. Cannot exclude a complicated diverticulitis. There is dilatation of the colon proximal to the obstruction. Small bowel also mildly dilated. Plan: - Gastrografin enema - CEA - NPO - CRS consult - Further recommendations based on clinical course Addendum: Spoke with radiologist Dr. Jake Correa regarding Gastrografin enema. He states the colon is full of stool and likely if exam is done the pt will be further obstructed requiring surgery. Cancelled exam, will await CRS recommendations. Pt has been seen and examined by myself and Dr. Maddox and this note is written on her behalf (Kinga Garcia) Physician Comments seen, examined agree with above general surgery consultation noted, Gastrografin enema cancelled-see notes egd/colon in am-discussed about risk of perforation and emergency surgery , colonoscopy high risk due to findings surgery recommending colonoscopy (Sandra Maddox MD) Kinga Garcia Nov 17, 2017 12:09 Sandra Maddox MD Nov 17, 2017 19:53
--- NOTE | 2017-11-17 16:15 | PD.CONS ---
cc: Bruno Garrison MD HPI Service General Surgery Consult Requested By Dr. Mancuso Reason for Consult Colonic mass Primary Care Physician [facility] History of Present Illness This is a 52 year old male with a past medical history of degenerative disk disease who presented to the ED last night with complaints on abdominal pain and early satiety. The patient [place] [facility] for abdominal pain. He was diagnosed and treated with antibiotics. He has finished the antibiotics prescribed to him. The patient reports no associated nausea or vomiting. A CT abdomen/pelvis was obtained which visualized a distal LEFT colonic stricture with associated mass. The patient has a normal WBC. His tumor jose are currently pending. A General Surgery consultation has been requested. Review of Systems Constitutional: DENIES: Fatigue, Weight loss, Change in appetite Endocrine: DENIES: Polydipsia, Polyuria, Polyphagia Eyes: DENIES: Diplopia, Eye inflammation Ears, nose, mouth, throat: DENIES: Hearing loss Respiratory: DENIES: Apneas Cardiovascular: DENIES: Chest pain Gastrointestinal: COMPLAINS OF: Abdominal pain, DENIES: Nausea, Vomiting Genitourinary: DENIES: Urinary frequency Musculoskeletal: DENIES: Joint pain Integumentary: DENIES: Abnormal pigmentation Hematologic/lymphatic: DENIES: Bruising Immunologic/allergic: DENIES: Eczema Neurologic: DENIES: Headache, Localized weakness Psychiatric: DENIES: Mood changes, Depression, Hallucinations Past Family Social History Past Medical History Degenerative disk disease Past Surgical History open LEFT inguinal hernia repair Scrotal reconstruction Allergies: Coded Allergies: No Known Allergies (Unverified , 11/16/17) Active Ordered Medications Current Medications Medications (Trade) Dose Ordered Sig/She Route Start Time Stop Time Status Last Admin Sodium Chloride 1,000 ml @ 100 mls/hr Q10H IV 11/16/17 19:54 11/17/17 07:10 (NS Flush) 2 ml UNSCH PRN IV FLUSH 11/16/17 20:00 11/17/17 00:03 (NS Flush) 2 ml BID IV FLUSH 11/16/17 21:00 11/16/17 21:26 (Zofran Inj) 4 mg Q6H PRN IVP 11/16/17 20:00 (Narcan Inj) 0.4 mg UNSCH PRN IV PUSH 11/16/17 20:00 Ciprofloxacin/ Dextrose 200 ml @ 200 mls/hr Q12H IV 11/17/17 08:00 11/17/17 07:36 Metronidazole 100 ml @ 100 mls/hr Q6H IV 11/17/17 02:00 11/17/17 14:02 (Morphine Inj) 2 mg Q3H PRN IV PUSH 11/16/17 20:15 11/17/17 12:23 Family History No family history of esophagus, stomach, colon or rectal cancer Mother: leukemia Social History Denies tobacco use Denies ETOH use Denies illicit drugs Works in [employer]. Physical Exam Vital Signs Vital Signs Date Time Temp Pulse Resp B/P (MAP) Pulse Ox O2 Delivery O2 Flow Rate FiO2 11/17/17 12:00 98.0 62 18 100/54 (69) 98 11/17/17 12:00 64 11/17/17 09:50 63 11/17/17 08:00 98.0 68 18 152/91 (111) 98 11/17/17 04:58 98.4 68 17 147/71 (96) 98 11/17/17 00:41 98.9 70 17 121/65 (83) 100 11/16/17 22:47 99.0 73 17 135/77 (96) 98 11/16/17 20:57 73 16 131/83 (99) 100 Room Air 11/16/17 17:28 70 18 97 Room Air 11/16/17 16:40 98.5 81 16 126/81 (96) 99 Physical Exam GENERAL: Very pleasant 52 year old male resting in bed in no acute distress. SKIN: Warm and dry. HEAD: Atraumatic. Normocephalic. EYES: Pupils equal and round. No scleral icterus. No injection or drainage. ENT: No nasal bleeding or discharge. Mucous membranes pink and moist. NECK: Trachea midline. CARDIOVASCULAR: Regular rate and rhythm. RESPIRATORY: No accessory muscle use. Clear to auscultation. Breath sounds equal bilaterally. GASTROINTESTINAL: Abdomen obese; moderately distended; LLQ abdominal pain with palpation. Well healed LEFT inguinal hernia incision. MUSCULOSKELETAL: Extremities without clubbing, cyanosis, or edema. No obvious deformities. NEUROLOGICAL: Awake and alert. No obvious cranial nerve deficits. Motor grossly within normal limits. Five out of 5 muscle strength in the arms and legs. Normal speech. PSYCHIATRIC: Appropriate mood and affect; insight and judgment normal. Laboratory Laboratory Tests Test 11/16/17 17:05 11/16/17 17:18 11/17/17 06:13 White Blood Count 10.7 9.0 Red Blood Count 4.57 4.28 Hemoglobin 13.4 12.4 Hematocrit 39.7 36.6 Mean Corpuscular Volume 86.8 85.5 Mean Corpuscular Hemoglobin 29.3 29.0 Mean Corpuscular Hemoglobin Concent 33.7 33.9 Red Cell Distribution Width 13.9 14.0 Platelet Count 338 290 Mean Platelet Volume 8.8 8.9 Neutrophils (%) (Auto) 67.0 73.1 Lymphocytes (%) (Auto) 25.4 19.6 Monocytes (%) (Auto) 5.7 5.5 Eosinophils (%) (Auto) 1.2 1.2 Basophils (%) (Auto) 0.7 0.6 Neutrophils # (Auto) 7.1 6.6 Lymphocytes # (Auto) 2.7 1.8 Monocytes # (Auto) 0.6 0.5 Eosinophils # (Auto) 0.1 0.1 Basophils # (Auto) 0.1 0.1 CBC Comment DIFF FINAL DIFF FINAL Differential Comment Prothrombin Time 10.7 Prothromb Time International Ratio 1.1 Activated Partial Thromboplast Time 27.8 Blood Urea Nitrogen 10 7 Creatinine 1.12 1.01 Random Glucose 90 98 Total Protein 7.9 Albumin 3.8 Calcium Level 9.2 8.8 Alkaline Phosphatase 80 Aspartate Amino Transf (AST/SGOT) 17 Alanine Aminotransferase (ALT/SGPT) 35 Total Bilirubin 0.3 Sodium Level 136 137 Potassium Level 4.3 4.3 Chloride Level 102 104 Carbon Dioxide Level 26.5 27.2 Anion Gap 8 6 Estimat Glomerular Filtration Rate 69 78 Lipase 70 Lactic Acid Level 0.6 Result Diagram: 11/17/1761211/17/1713 Imaging Last 48 hours Impressions Abdomen/Pelvis CT 11/16/17 9077 Signed Impressions: Service Date/Time: October 18:51 - CONCLUSION: 1. Distal left colonic stricture which is associated with a colonic mass and adjacent soft tissue nodules are as measured above. Primary differential diagnosis is a colonic malignancy. Cannot exclude a complicated diverticulitis. There is dilatation of the colon proximal to the obstruction. Small bowel also mildly dilated. Rick Hercules MD Assessment and Plan Assessment and Plan 52 year old male with abdominal pain; colonic mass on CT -GI following--- recommend colonoscopy with biopsy KATE -Will follow pathology -Tumor markers pending -If surgical resection is needed will be available -Discussed surgical options such as keeping the bowel preped and doing a primary anastomosis if able to vs resection and colostomy -Would need emergent surgery should he have total obstruction mass which at that point would warrant a colostomy -[place] records have already been requested; will follow up on those - -Thank you for this consult; We will continue to follow closely Attending Note - Dr. Garrison Patient seen and evaluated; Gastrografin enema vs. colonoscopy to further evaluate sigmoid lesion. Abdomen moderately tender LLQ and mid-abdomen. He reports 20-25 lb wt. loss over last 4-6 weeks; unable to tolerate much as far as solid food. He was told he had [place]icul[place] with [place]ation [place] ago. Discussed above with patient; he is agreeable to undergo endoscopy and biopsy. Inquired about EGD as well, as he has what sounds like reflux as well. The exam, history, and the medical decision-making described in the above note were completed with the assistance of the mid-level provider. I reviewed and agree with the findings presented. I attest that I had a [id number] encounter with the patient on the same day, and personally performed and documented my assessment and findings in the medical record. Discussed Condition With Maritza Choi/First Catherine CONKLIN Nov 17, 2017 16:14 Bruno Garrison MD Nov 17, 2017 18:37
--- NOTE | 2017-11-17 19:31 | HHI.PR ---
Subjective Remarks Patient states he has intermittent burning in his left lower quadrant but his pain is otherwise well controlled. He denies any fevers. He states he has been passing gas starting overnight. He denies any nausea or vomiting. Objective Vitals Vital Signs Date Time Temp Pulse Resp B/P (MAP) Pulse Ox O2 Delivery O2 Flow Rate FiO2 11/17/17 16:25 68 11/17/17 16:00 98.6 71 18 118/69 (85) 97 11/17/17 12:00 98.0 62 18 100/54 (69) 98 11/17/17 12:00 64 11/17/17 09:50 63 11/17/17 08:00 98.0 68 18 152/91 (111) 98 11/17/17 04:58 98.4 68 17 147/71 (96) 98 11/17/17 00:41 98.9 70 17 121/65 (83) 100 11/16/17 22:47 99.0 73 17 135/77 (96) 98 11/16/17 20:57 73 16 131/83 (99) 100 Room Air I/O 11/16/17 11/16/17 11/16/17 11/17/17 11/17/17 11/17/17 07:00 15:00 23:00 07:00 15:00 23:00 Intake Total 2300 ml 300 ml 800 ml Balance 2300 ml 300 ml 800 ml Intake IV Total 2300 ml 300 ml 800 ml # Voids 2 Result Diagram: 11/17/17 0613 11/17/17 0613 Imaging Last Impressions Abdomen/Pelvis CT 11/16/17 1707 Signed Impressions: Service Date/Time: October 18:51 - CONCLUSION: 1. Distal left colonic stricture which is associated with a colonic mass and adjacent soft tissue nodules are as measured above. Primary differential diagnosis is a colonic malignancy. Cannot exclude a complicated diverticulitis. There is dilatation of the colon proximal to the obstruction. Small bowel also mildly dilated. Rick Hercules MD Objective Remarks GENERAL: Well-nourished, well-developed patient. SKIN: Warm and dry. HEAD: Normocephalic. EYES: No scleral icterus. No injection or drainage. NECK: Supple, trachea midline. No JVD or lymphadenopathy. CARDIOVASCULAR: Regular rate and rhythm without murmurs, gallops, or rubs. RESPIRATORY: Breath sounds equal bilaterally. No accessory muscle use. GASTROINTESTINAL: Tenderness to palpation of left lower and upper quadrants. Hypoactive bowel sounds. Abdomen is soft, nonacute. EXTREMITIES: No cyanosis, or edema. NEUROLOGICAL: Awake, alert, and oriented x 3. Non-focal. A/P Problem List: (1) Partial intestinal obstruction ICD Code: K56.600 - Partial intestinal obstruction, unspecified as to cause Status: Acute (2) Mass of colon ICD Code: K63.9 - Disease of intestine, unspecified Status: Acute (3) Diverticulitis large intestine ICD Code: K57.32 - Diverticulitis of large intestine without perforation or abscess without bleeding Status: Acute Assessment and Plan Partial intestinal obstruction Radiology noted a colonic stricture associated with a mass in soft tissue swelling in the colon Differential includes malignancy or complex diverticulitis The picture is mixed as patient does not have a fever which makes the classic picture of diverticulitis unlikely It is unclear whether or not patient had a significant mass when he was worked up at [facility], medical records are pending to help clarify that point GI is recommending colonoscopy with possible biopsy Surgery is on standby if obstruction worsens or perforation occurs Tumor marker workup is pending Appreciate gastroenterology consult Appreciate general surgery consult DVT prophylaxis SCDs Problem Qualifiers (1) Partial intestinal obstruction: Qualified Codes: K56.690 - Other partial intestinal obstruction (2) Diverticulitis large intestine: Qualified Codes: K57.33 - Diverticulitis of large intestine without perforation or abscess with bleeding Harry Mancuso MD Nov 17, 2017 19:31
[2017-11-17] MEDS ORDERED: MAGNESIUM CITRATE SOLN 300 ML BTL PO ONE ×2 (20:00→23:00)
[2017-11-17] MEDS ORDERED: SOD PHOSPHATE/SOD BIPHOSPHATE (ADULT) ENEMA 133ML RECTAL ONE (20:00)
[2017-11-18] VITALS (8 sets, daily range): BP systolic 111–158; BP diastolic 63–85; PULSE 58–106; RESP 16–20; TEMP 97.7–98.3; O2SAT 96–98
[2017-11-18] MEDS: metroNIDAZOLE 500 MG INJ 100 ML IV SCH ×4 (01:37→21:14)
[2017-11-18] MEDS: MORPHINE SULFATE 2 MG/ML INJ IV PUSH PRN ×2 (07:29→19:06)
[2017-11-18] MEDS: SODIUM CHLORIDE 0.9% FLUSH 10 ML FLUSH IV FLUSH SCH ×2 (07:30→21:00)
[2017-11-18] MEDS: CIPROFLOXACIN 400 MG PREMIX 200 ML IV SCH ×2 (07:30→21:14)
[2017-11-18] MEDS: SODIUM CHLOR 0.9% 1000 ML INJ 1,000 ML IV SCH (07:58)
[2017-11-18] MEDS: ONDANSETRON HCL 4 MG/2 ML VIAL IVP PRN ×2 (11:15→18:34)
[2017-11-18] MEDS ORDERED: CHLORHEXIDINE GLUCONATE 2 % 1 PACK (2 CLOTHS) TOPICAL PRN (11:30)
[2017-11-18] MEDS ORDERED: POVIDONE IODINE 5% (ANTISEPSIS KIT) 4 APPLICATIONS EACH NARE PRN (11:30)
[2017-11-18] MEDS ORDERED: SODIUM CHLORID 0.9% 500 ML IV PRN (11:30)
[2017-11-18] MEDS ORDERED: METOPROLOL TARTRATE 25 MG TAB PO PRN (11:30)
[2017-11-18] MEDS ORDERED: LACTATED RINGER'S 1000 ML IV PRN (11:30)
[2017-11-18] MEDS ORDERED: INSULIN HUMAN REGULAR 1,000 UNITS/10 ML VIAL SQ PRN (11:30)
[2017-11-18] MEDS ORDERED: SUCCINYLCHOLINE CHLORIDE 100 MG/5 ML SYRINGE IV PUSH ONE (12:00)
[2017-11-18] MEDS ORDERED: LIDOCAINE HCL 1% PF 5 ML SYRINGE OTHER ONE (12:00)
[2017-11-18] MEDS ORDERED: PROPOFOL 200 MG/20 ML AMP IV ONE (12:00)
--- NOTE | 2017-11-18 15:27 | HHI.PR ---
Subjective Remarks 52-year-old male who presented 2 days ago with colonic obstruction. He did not tolerate the oral prep for his pending colonoscopy, and was nauseous this morning. He did tolerate the enema. Objective Vitals Vital Signs Date Time Temp Pulse Resp B/P (MAP) Pulse Ox O2 Delivery O2 Flow Rate FiO2 11/18/17 12:00 58 11/18/17 11:48 97.9 65 20 149/71 (97) 97 11/18/17 08:59 97.7 96 20 135/80 (98) 98 11/18/17 08:45 65 11/18/17 04:00 98.2 73 18 111/63 (79) 97 11/18/17 00:00 97.8 72 20 121/78 (92) 96 11/17/17 20:00 98.4 63 20 117/67 (84) 97 11/17/17 16:25 68 11/17/17 16:00 98.6 71 18 118/69 (85) 97 I/O 11/17/17 11/17/17 11/17/17 11/18/17 11/18/17 11/18/17 07:00 15:00 23:00 07:00 15:00 23:00 Intake Total 300 ml 800 ml 400 ml Balance 300 ml 800 ml 400 ml Intake IV Total 300 ml 800 ml 400 ml # Voids 2 2 # Bowel Movements 0 Result Diagram: 11/17/1761211/17/17 06 Objective Remarks GENERAL: Well-nourished, well-developed patient. SKIN: Warm and dry. HEAD: Normocephalic. EYES: No scleral icterus. No injection or drainage. NECK: Supple, trachea midline. No JVD or lymphadenopathy. CARDIOVASCULAR: Regular rate and rhythm without murmurs, gallops, or rubs. RESPIRATORY: Breath sounds equal bilaterally. No accessory muscle use. GASTROINTESTINAL: Tenderness to palpation of left lower and upper quadrants. Hypoactive bowel sounds. Abdomen is soft, nonacute. EXTREMITIES: No cyanosis, or edema. NEUROLOGICAL: Awake, alert, and oriented x 3. Non-focal. A/P Problem List: (1) Partial intestinal obstruction ICD Code: K56.600 - Partial intestinal obstruction, unspecified as to cause Status: Acute (2) Mass of colon ICD Code: K63.9 - Disease of intestine, unspecified Status: Acute (3) Diverticulitis large intestine ICD Code: K57.32 - Diverticulitis of large intestine without perforation or abscess without bleeding Status: Acute Assessment and Plan Partial intestinal obstruction Radiology noted a colonic stricture associated with a mass in soft tissue swelling in the colon Differential includes malignancy or complex diverticulitis Awaiting medical records from [facility] to help clarify diagnosis Colonoscopy is pending, possible biopsy during the procedure Surgery is on standby for intervention if worsening occurs CEA is 5.8 (normal 0-5.0 ) Appreciate gastroenterology consult Appreciate general surgery consult DVT prophylaxis SCDs Problem Qualifiers (1) Partial intestinal obstruction: Qualified Codes: K56.690 - Other partial intestinal obstruction (2) Diverticulitis large intestine: Qualified Codes: K57.33 - Diverticulitis of large intestine without perforation or abscess with bleeding Harry Mancuso MD Nov 18, 2017 15:27
[2017-11-18] MEDS ORDERED: fentaNYL CITRATE 250 MCG/5 ML AMP ONE (15:36)
--- NOTE | 2017-11-18 16:15 | GIPROC ---
[facility] [address] [facility]. [facility], [address] EGD PROCEDURE REPORT EXAM DATE: 11/18/2017 PATIENT NAME: Sonny Ordoñez MR #: [id number] BIRTHDATE: 1965 ATTENDING: Sandra Maddox MD ORDER #: [id number] [employer]AR E[employer] ARCHAEOLOGY LECTURER: Susanna Prado and Yaakov Gaming STATUS: inpatient INDICATIONS: The patient is a 52 yr old male here for an EGD due to reflux PROCEDURE PERFORMED: EGD w/ biopsy MEDICATIONS: None and Per Anesthesia. TOPICAL ANESTHETIC: none CONSENT: The patient understands the risks and benefits of the procedure and understands that these risks include, but are not limited to: sedation, allergic reaction, infection, perforation and/or bleeding. Alternative means of evaluation and treatment include, among others: physical exam, x-rays, and/or surgical intervention. The patient elects to proceed with this endoscopic procedure. medical equipment was checked for proper function. Hand hygiene and appropriate measures for infection prevention was taken. After the risks, benefits and alternatives of the procedure were thoroughly explained, Informed consent was verified, confirmed and timeout was successfully executed by the treatment team. The patient was anesthetized with topical anesthesia and the EC-[id number] (Pedi C) endoscope was introduced through the mouth and advanced to the second portion of the duodenum. Retroflexed views revealed a hiatal hernia The gastroscope was then slowly withdrawn and removed. Duodenitis second portion-biopsy gastritis antrum-biopsy esophagitis distal esophagus -biopsy. ADVERSE EVENTS: There were no complications. IMPRESSIONS: 1. Duodenitis second portion-biopsy gastritis antrum-biopsy esophagitis distal esophagus -biopsy 2. Retroflexed views revealed a hiatal hernia RECOMMENDATIONS: 1. Await biopsy results. Biopsy results will not be ready for 7-10 days. If you don't hear from us in two weeks, call our office for biopsy results. 2. Anti-reflux regimen 3. Continue PPI PATIENT CONDITION: stable DISPOSITION: Inpatient REPEAT EXAM: Return 3 years EGD Sandra Maddox MD eSigned: Sandra Maddox MD 11/18/2017 4:15 PM cc:
--- NOTE | 2017-11-18 16:25 | GIPROC ---
[facility] [address] [facility]. [facility], [address] FLEXIBLE SIGMOIDOSCOPY PROCEDURE REPORT EXAM DATE: 11/18/2017 PATIENT NAME: Sonny Ordoñez MR #: [id number] BIRTHDATE: 1965 ORDER #: [id number] ATTENDING: Sandra Maddox MD PLANOGRAPH OPERATOR: Susanna Prado and Yaakov Gaming STATUS: inpatient INDICATIONS: The patient is a 52 yr old male here for a flexible sigmoidoscopy due to abnormal ct , mass in colon PROCEDURE PERFORMED: Flexible Sigmoidoscopy with biopsy MEDICATIONS: None and Per Anesthesia. ESTIMATED BLOOD LOSS: None CONSENT: The patient understands the risks and benefits of the procedure and understands that these risks include, but are not limited to: sedation, allergic reaction, infection, perforation and/or bleeding. Alternative means of evaluation and treatment include, among others: physical exam, x-rays, and/or surgical intervention. The patient elects to proceed with this endoscopic procedure. medical equipment was checked for proper function. Hand hygiene and appropriate measures for infection prevention was taken. After the risks, benefits and alternatives of the procedure were thoroughly explained, Informed consent was verified, confirmed and timeout was successfully executed by the treatment team. A digital rectal exam revealed external hemorrhoids The Pentax EC-3490Li endoscope was introduced through the anus and advanced to the sigmoid colon. The prep was good. The instrument was then slowly withdrawn as the colon was fully examined. COLON FINDINGS: Mass in sigmoid/ junction with descending , obstructing-scope could not be passed -biopsy, mailgnancy favored , possible inflammatory too. Retroflexed views revealed internal hemorrhoid The scope was then completely withdrawn from the patient and the procedure terminated. ADVERSE EVENTS: There were no complications. IMPRESSIONS: 1. Mass in sigmoid/ junction with descending , obstructing-scope could not be passed -biopsy , malignancy favored , could be inflammatory too 2. Retroflexed views revealed internal hemorrhoid-fibrosed 3. Revealed external hemorrhoids RECOMMENDATIONS: Npo except ice chips surgical fu-discussed with iv antibiotics supportive care RECALL: Return 3 months Colonoscopy pending biopsy and surgical intervention Sandra Maddox MD eSigned: Sandra Maddox MD 11/18/2017 4:24 PM cc:
[2017-11-18] MEDS ORDERED: DO NOT ADM ANY ANTICOAGULANT DRUGS PRN (17:00)
--- NOTE | 2017-11-18 19:10 | EKG ---
Date Performed: 11/18/2017 Time Performed: 12:07:04 PTAGE: 52 years EKG: Sinus rhythm NORMAL ECG NO PREVIOUS TRACING DOCTOR: Candelaria Cage Interpretating Date/Time 11/18/2017 19:08:20
[2017-11-19] VITALS (9 sets, daily range): BP systolic 123–174; BP diastolic 78–103; PULSE 72–100; RESP 17–20; TEMP 97.9–99.4; O2SAT 96–100
[2017-11-19] MEDS: ONDANSETRON HCL 4 MG/2 ML VIAL IVP PRN (00:09)
[2017-11-19] MEDS: metroNIDAZOLE 500 MG INJ 100 ML IV SCH ×4 (02:58→21:13)
[2017-11-19] MEDS: MORPHINE SULFATE 2 MG/ML INJ IV PUSH PRN ×3 (07:16→21:11)
[2017-11-19] MEDS: SODIUM CHLOR 0.9% 1000 ML INJ 1,000 ML IV SCH ×2 (07:54→17:24)
[2017-11-19] MEDS: SODIUM CHLORIDE 0.9% FLUSH 10 ML FLUSH IV FLUSH SCH ×2 (08:42→21:13)
[2017-11-19] MEDS: CIPROFLOXACIN 400 MG PREMIX 200 ML IV SCH ×2 (08:44→21:13)
--- NOTE | 2017-11-19 10:51 | HHI.PR ---
Subjective Subjective Notes feels miserable. distended, hiccups, vomited. Objective Vitals/I&O Vital Signs Date Time Temp Pulse Resp B/P (MAP) Pulse Ox O2 Delivery O2 Flow Rate FiO2 11/19/17 10:05 98 21 11/19/17 08:32 98.6 75 20 123/83 (96) 11/16/17 20:57 Room Air Radiology Last 48 hours Impressions Abdomen/Pelvis CT 11/16/17 1707 Signed Impressions: Service Date/Time: October 18:51 - CONCLUSION: 1. Distal left colonic stricture which is associated with a colonic mass and adjacent soft tissue nodules are as measured above. Primary differential diagnosis is a colonic malignancy. Cannot exclude a complicated diverticulitis. There is dilatation of the colon proximal to the obstruction. Small bowel also mildly dilated. Rick Hercules MD Narrative Exam distended, abdomen quiet, mild tenderness A/P Assessment and Plan probable obstucting colon cancer will proceed to OR in am. may need colostomy - patient aware Adrian Jeffrey MD Nov 19, 2017 10:51
--- NOTE | 2017-11-19 15:06 | HHI.PR ---
Subjective Remarks Patient is sitting on side of bed vomiting today. Mostly dry heaves. I offered him Zofran but he states he wants to "get it all up". He did not respond well to p.o. GI prep. Objective Vitals Vital Signs Date Time Temp Pulse Resp B/P (MAP) Pulse Ox O2 Delivery O2 Flow Rate FiO2 11/19/17 12:13 98.5 85 20 174/103 (126) 99 11/19/17 10:05 98 21 11/19/17 08:32 98.6 75 20 123/83 (96) 98 11/19/17 05:30 97.9 75 20 140/90 (107) 99 11/19/17 00:20 98.0 100 19 150/89 (109) 97 11/18/17 21:20 98.3 74 16 148/80 (102) 98 11/18/17 17:00 98.8 70 15 154/96 (115) 96 11/18/17 16:45 77 16 121/72 (88) 95 11/18/17 16:29 98.9 78 15 127/78 (94) 98 11/18/17 15:35 98.0 106 16 158/85 (109) 98 I/O 11/18/17 11/18/17 11/18/17 11/19/17 11/19/17 11/19/17 07:00 15:00 23:00 07:00 15:00 23:00 Intake Total 400 ml 600 ml 0 ml Balance 400 ml 600 ml 0 ml Intake Oral 0 ml 0 ml IV Total 400 ml 600 ml # Voids 2 5 2 1 # Bowel Movements 0 0 0 Result Diagram: 11/17/1761211/17/17612 Objective Remarks GENERAL: Well-nourished, well-developed patient. SKIN: Warm and dry. HEAD: Normocephalic. EYES: No scleral icterus. No injection or drainage. NECK: Supple, trachea midline. No JVD or lymphadenopathy. CARDIOVASCULAR: Regular rate and rhythm without murmurs, gallops, or rubs. RESPIRATORY: Breath sounds equal bilaterally. No accessory muscle use. GASTROINTESTINAL: Tenderness to palpation of left lower and upper quadrants. Hypoactive bowel sounds. Abdomen is soft, nonacute. EXTREMITIES: No cyanosis, or edema. NEUROLOGICAL: Awake, alert, and oriented x 3. Non-focal. A/P Problem List: (1) Partial intestinal obstruction ICD Code: K56.600 - Partial intestinal obstruction, unspecified as to cause Status: Acute (2) Mass of colon ICD Code: K63.9 - Disease of intestine, unspecified Status: Acute (3) Diverticulitis large intestine ICD Code: K57.32 - Diverticulitis of large intestine without perforation or abscess without bleeding Status: Acute Assessment and Plan Partial intestinal obstruction Radiology noted a colonic stricture associated with a mass in soft tissue swelling in the colon Differential includes malignancy or complex diverticulitis Awaiting medical records from [facility] to help clarify diagnosis Colonoscopy is results are unclear, no pathology is pending. CEA is 5.8 ( normal 0-5.0 ) Surgery is planned for tomorrow to obtain a definitive diagnosis Appreciate gastroenterology consult Appreciate general surgery consult DVT prophylaxis SCDs Problem Qualifiers (1) Partial intestinal obstruction: Qualified Codes: K56.690 - Other partial intestinal obstruction (2) Diverticulitis large intestine: Qualified Codes: K57.33 - Diverticulitis of large intestine without perforation or abscess with bleeding Harry Mancuso MD Nov 19, 2017 15:05
--- NOTE | 2017-11-19 17:37 | HHI.GIFU ---
Subjective Remarks Pt having severe abdominal pain/distention Now S/P NGT to LIWS already having some relief Objective Vitals I&O Vital Signs Date Time Temp Pulse Resp B/P (MAP) Pulse Ox O2 Delivery O2 Flow Rate FiO2 11/19/17 16:13 99.4 73 20 167/93 (117) 100 11/19/17 12:13 98.5 85 20 174/103 (126) 99 11/19/17 10:05 98 21 11/19/17 08:32 98.6 75 20 123/83 (96) 98 11/19/17 05:30 97.9 75 20 140/90 (107) 99 11/19/17 00:20 98.0 100 19 150/89 (109) 97 11/18/17 21:20 98.3 74 16 148/80 (102) 98 I/O 11/18/17 11/18/17 11/18/17 11/19/17 11/19/17 11/19/17 07:00 15:00 23:00 07:00 15:00 23:00 Intake Total 400 ml 600 ml 0 ml 0 ml Balance 400 ml 600 ml 0 ml 0 ml Intake Oral 0 ml 0 ml 0 ml IV Total 400 ml 600 ml # Voids 2 5 2 1 # Bowel Movements 0 0 0 Imaging Last Impressions Abdomen/Pelvis CT 11/16/17 1707 Signed Impressions: Service Date/Time: October 18:51 - CONCLUSION: 1. Distal left colonic stricture which is associated with a colonic mass and adjacent soft tissue nodules are as measured above. Primary differential diagnosis is a colonic malignancy. Cannot exclude a complicated diverticulitis. There is dilatation of the colon proximal to the obstruction. Small bowel also mildly dilated. Rick Hercules MD Physical Exam HEENT: Normocephalic; atraumatic CHEST: Even/unlabored CARDIAC: RRR ABDOMEN: Distended, firm, diffuse TTP, bowel sounds active EXTREMITIES: No clubbing, cyanosis, or edema. SKIN: Normal; no rash; no jaundice. HYDRAULIC MECHANIC: No focal deficits; alert and oriented times three. Assessment and Plan Plan Assessment: - Change in bowel habits- reports on Monday he noticed his BMs to be thin and bloody, has not had BM since Monday night, (+) flatus. Admitted to [facility] [place] in beginning of October for diverticulitis with microperforation. Was having hematochezia and LLQ prior to that admission. States symptoms resolved and began again on Monday. H/H currently stable. - Unintentional weight loss- 20 lbs over the past month - Decreased appetite states secondary to increased satiety Pt denies ever having EGD or colonoscopy. Denies family history significant for colon cancer CT abdomen and pelvis noted (11/16) --> Distal left colonic stricture which is associated with a colonic mass and adjacent soft tissue nodules are as measured above. Primary differential diagnosis is a colonic malignancy. Cannot exclude a complicated diverticulitis. There is dilatation of the colon proximal to the obstruction. Small bowel also mildly dilated. (11/19) Pt S/P EGD and colonoscopy yesterday --> Duodenitis. Gastritis. Esophagitis distal esophagus. Hiatal hernia. Mass is sigmoid/junction with descending obstruction scope- scope could not be passes, malignancy favored could be inflammatory too. Internal hemorrhoid, fibrose, external hemorrhoids. Pt complaining of abdominal pain and distention today, NGT to LIWS prior to my exam, has already gotten some relief with that. Planned for exploratory laparotomy with bowel resection and possible colostomy tomorrow. CEA-5.8 Plan: - NGT to LIWS - EGD/colon biopsies pending - GS following, further recommendations per them - GI will sign off, please reconsult as needed Pt has been seen and examined by myself and Dr. Maddox and this note is written on her behalf Kinga Garcia Nov 19, 2017 17:37
[2017-11-19] MEDS ORDERED: CHLORHEXIDINE GLUCONATE 2 % 1 PACK (2 CLOTHS) TOPICAL PRN (18:15)
[2017-11-19] MEDS ORDERED: SODIUM CHLORID 0.9% 500 ML IV PRN (18:15)
[2017-11-19] MEDS ORDERED: INSULIN HUMAN REGULAR 1,000 UNITS/10 ML VIAL SQ PRN (18:15)
[2017-11-19] MEDS ORDERED: METOPROLOL TARTRATE 25 MG TAB PO PRN (18:15)
[2017-11-19] MEDS ORDERED: LACTATED RINGER'S 1000 ML IV PRN (18:15)
[2017-11-19] MEDS ORDERED: POVIDONE IODINE 5% (ANTISEPSIS KIT) 4 APPLICATIONS EACH NARE PRN (18:15)
[2017-11-20 00:50] VITALS: BP 130/75; PULSE 76; RESP 18; TEMP 98.8; O2SAT 97
[2017-11-20] MEDS: metroNIDAZOLE 500 MG INJ 100 ML IV SCH ×4 (02:17→19:25)
[2017-11-20] MEDS: MORPHINE SULFATE 2 MG/ML INJ IV PUSH PRN (02:17)
[2017-11-20] MEDS: SODIUM CHLOR 0.9% 1000 ML INJ 1,000 ML IV SCH ×3 (03:54→22:45)
[2017-11-20 04:30] VITALS: BP 120/67; PULSE 80; RESP 17; TEMP 97.7; O2SAT 93
[2017-11-20 08:29] VITALS: BP 144/83; PULSE 69; RESP 16; TEMP 98.9; O2SAT 96
[2017-11-20] MEDS: SODIUM CHLORIDE 0.9% FLUSH 10 ML FLUSH IV FLUSH SCH ×2 (09:00→22:15)
[2017-11-20] MEDS: CIPROFLOXACIN 400 MG PREMIX 200 ML IV SCH ×2 (09:33→19:29)
[2017-11-20] MEDS ORDERED: BUPIVACAINE/EPINEPHRINE 0.25% 50 ML VIAL ONE (10:22)
[2017-11-20] MEDS ORDERED: SODIUM CHLORIDE 0.9% 20 ML VIAL ONE (10:24)
[2017-11-20] MEDS ORDERED: HEPARIN SODIUM - IV 10,000 UNITS/10 ML VIAL ONE (10:24)
[2017-11-20] MEDS ORDERED: HEPARIN SODIUM - SQ 10,000 UNITS/ML VIAL ONE (10:24)
[2017-11-20] MEDS ORDERED: DEXMEDETOMIDINE HCL 200 MCG/2 ML VIAL ONE (10:53)
[2017-11-20] MEDS ORDERED: SUGAMMADEX SODIUM 200 MG/2 ML VIAL IV PUSH ONE (10:54)
[2017-11-20] MEDS ORDERED: FAMOTIDINE 20 MG/2 ML VIAL ONE (10:54)
[2017-11-20] MEDS ORDERED: PROPOFOL 200 MG/20 ML AMP IV ONE (12:00)
[2017-11-20] MEDS ORDERED: ONDANSETRON HCL 4 MG/2 ML VIAL IV ONE (12:00)
[2017-11-20] MEDS ORDERED: SUCCINYLCHOLINE CHLORIDE 200 MG/10 ML VIAL IV ONE (12:00)
[2017-11-20] MEDS ORDERED: LACTATED RINGER'S 1000 ML INJ 2,000 ML IV ONE (12:00)
[2017-11-20] MEDS ORDERED: NEOSTIGMINE 5 MG/5 ML SYRINGE IV PUSH ONE (12:00)
[2017-11-20] MEDS ORDERED: DEXAMETHASONE SOD PHOS 4 MG/ML VIAL IV ONE (12:00)
[2017-11-20] MEDS ORDERED: LIDOCAINE HCL 1% PF 5 ML SYRINGE OTHER ONE (12:00)
[2017-11-20] MEDS ORDERED: GLYCOPYRROLATE 0.6 MG/3 ML SYRINGE IV PUSH ONE (12:00)
[2017-11-20] MEDS ORDERED: ROCURONIUM INJ 50 MG/5 ML SYRINGE IV PUSH ONE (12:00)
[2017-11-20 12:16] VITALS: BP 170/99; PULSE 69; RESP 18; TEMP 97.3; O2SAT 96
[2017-11-20 16:11] VITALS: BP 145/80; PULSE 67; RESP 18; TEMP 98.7; O2SAT 96
[2017-11-20] MEDS ORDERED: LORazepam 2 MG/ML VIAL IV PUSH PRN (18:00)
--- NOTE | 2017-11-20 18:08 | HHI.PR ---
Subjective Remarks Patient went down for surgery today but has returned to his room without surgery performed. There were some delays with scheduling due to emergency surgeries that required him to be bumped to a later time. He is still on the schedule today but I advised him to be open-minded regarding the schedule in case the surgery does not happen today. He had an NG tube inserted and is more comfortable from a nausea/vomiting standpoint Objective Vitals Vital Signs Date Time Temp Pulse Resp B/P (MAP) Pulse Ox O2 Delivery O2 Flow Rate FiO2 11/20/17 16:11 98.7 67 18 145/80 (101) 96 11/20/17 12:16 97.3 69 18 170/99 (122) 96 11/20/17 08:29 98.9 69 16 144/83 (103) 96 11/20/17 04:30 97.7 80 17 120/67 (84) 93 11/20/17 00:50 98.8 76 18 130/75 (93) 97 11/19/17 23:00 76 11/19/17 21:30 98.9 72 17 140/78 (98) 96 I/O 11/19/17 11/19/17 11/19/17 11/20/17 11/20/17 11/20/17 07:00 15:00 23:00 07:00 15:00 23:00 Intake Total 0 ml 0 ml 0 ml Output Total 250 ml 1875 ml 150 ml 600 ml Balance 0 ml -250 ml -1875 ml -150 ml -600 ml Intake Oral 0 ml 0 ml 0 ml Output Urine Total 1275 ml 150 ml Gastric Drainage Total 250 ml 600 ml 600 ml # Voids 2 1 2 # Bowel Movements 0 0 Result Diagram: 11/17/17 0611/17/17612 Objective Remarks GENERAL: Well-nourished, well-developed patient. SKIN: Warm and dry. HEAD: Normocephalic. EYES: No scleral icterus. No injection or drainage. NECK: Supple, trachea midline. No JVD or lymphadenopathy. CARDIOVASCULAR: Regular rate and rhythm without murmurs, gallops, or rubs. RESPIRATORY: Breath sounds equal bilaterally. No accessory muscle use. GASTROINTESTINAL: Tenderness to palpation of left lower and upper quadrants. Hypoactive bowel sounds. Abdomen is soft, nonacute. EXTREMITIES: No cyanosis, or edema. NEUROLOGICAL: Awake, alert, and oriented x 3. Non-focal. A/P Problem List: (1) Partial intestinal obstruction ICD Code: K56.600 - Partial intestinal obstruction, unspecified as to cause Status: Acute (2) Mass of colon ICD Code: K63.9 - Disease of intestine, unspecified Status: Acute (3) Diverticulitis large intestine ICD Code: K57.32 - Diverticulitis of large intestine without perforation or abscess without bleeding Status: Acute Assessment and Plan Partial intestinal obstruction Radiology noted a colonic stricture associated with a mass in soft tissue swelling in the colon Differential includes malignancy or complex diverticulitis Awaiting medical records from [facility] to help clarify diagnosis Colonoscopy is results are unclear, no pathology is pending. CEA is 5.8 ( normal 0-5.0 ) Surgery is planned for today, delays from unexpected emergency case his surgeon had to attend to Appreciate gastroenterology consult Appreciate general surgery consult Nausea and vomiting Onset was following p.o. GI prep She has an NG tube which was inserted in the preop area, this has brought him relief with 2-1/2 suction containers filled already DVT prophylaxis SCDs Problem Qualifiers (1) Partial intestinal obstruction: Qualified Codes: K56.690 - Other partial intestinal obstruction (2) Diverticulitis large intestine: Qualified Codes: K57.33 - Diverticulitis of large intestine without perforation or abscess with bleeding Harry Mancuso MD Nov 20, 2017 18:08
[2017-11-20] MEDS ORDERED: fentaNYL CITRATE 250 MCG/5 ML AMP ONE (19:02)
[2017-11-20] MEDS ORDERED: MIDAZOLAM HCL 2 MG/2 ML VIAL ONE (19:02)
--- NOTE | 2017-11-20 21:55 | HHI.PR ---
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
[2017-11-20] MEDS ORDERED: NALOXONE HCL 0.4 MG/ML AMP IV PUSH PRN (22:00)
[2017-11-20] MEDS: PCA - TOTAL MG MORPHINE DELIVERED PER SHIFT SCH (22:00)
[2017-11-20] MEDS ORDERED: DO NOT ADM ANY ANTICOAGULANT DRUGS PRN (22:15)
[2017-11-20 22:25] LABS: AUTOMATED NEUTROPHIL # 18.2 TH/MM3 (1.8-7.7); BASOPHIL % 0.2 % (0.0-2.0); HEMATOCRIT 36.3 % (39.0-51.0); HEMOGLOBIN 12.2 GM/DL (13.0-17.0); LYMPH % 5.2 % (9.0-44.0); MEAN CELL VOLUME 84.1 FL (80.0-100.0); MEAN CORPUSCULAR HEMOGLOBIN 28.4 PG (27.0-34.0); MEAN CORPUSCULAR HGB CONC 33.7 % (32.0-36.0); MEAN PLATELET VOLUME 8.6 FL (7.0-11.0); MONO % 3.6 % (0.0-8.0); MONOCYTE # 0.7 TH/MM3 (0-0.9); PLATELET COUNT 250 TH/MM3 (150-450); RED BLOOD COUNT 4.32 MIL/MM3 (4.50-5.90)
[2017-11-20] MEDS: FAMOTIDINE 20 MG/2 ML VIAL IV PUSH SCH (22:30)
[2017-11-20] MEDS: MORPHINE SULFATE 30 MG/30 ML PCA IV SCH (22:46)
[2017-11-20 22:47] LABS: BICARBONATE 28.9 MEQ/L (21.0-32.0); CALCIUM 8.1 MG/DL (8.5-10.1); CREATININE 0.95 MG/DL (0.60-1.30)
[2017-11-21] VITALS: BP 145/88; PULSE 99; RESP 18; O2SAT 96
[2017-11-21] MEDS: metroNIDAZOLE 500 MG INJ 100 ML IV SCH ×4 (02:42→23:03)
[2017-11-21 04:00] VITALS: BP 145/90; PULSE 79; RESP 18; TEMP 98.3; O2SAT 96
[2017-11-21] MEDS: MORPHINE SULFATE 30 MG/30 ML PCA IV SCH ×2 (05:25→19:27)
[2017-11-21] MEDS: PCA - TOTAL MG MORPHINE DELIVERED PER SHIFT SCH ×3 (05:27→21:30)
[2017-11-21 07:06] LABS: AUTOMATED NEUTROPHIL # 10.7 TH/MM3 (1.8-7.7); BASOPHIL % 0.1 % (0.0-2.0); HEMATOCRIT 33.3 % (39.0-51.0); HEMOGLOBIN 11.5 GM/DL (13.0-17.0); LYMPH % 9.3 % (9.0-44.0); LYMPHOCYTE # 1.2 TH/MM3 (1.0-4.8); MEAN CELL VOLUME 84.1 FL (80.0-100.0); MEAN CORPUSCULAR HEMOGLOBIN 28.9 PG (27.0-34.0); MEAN CORPUSCULAR HGB CONC 34.4 % (32.0-36.0); MEAN PLATELET VOLUME 9.1 FL (7.0-11.0); MONO % 6.7 % (0.0-8.0); MONOCYTE # 0.9 TH/MM3 (0-0.9); NEUT % 83.9 % (16.0-70.0); PLATELET COUNT 225 TH/MM3 (150-450); RED BLOOD COUNT 3.96 MIL/MM3 (4.50-5.90); RED CELL DISTRIBUTION WIDTH 14.1 % (11.6-17.2); WHITE BLOOD COUNT 12.8 TH/MM3 (4.0-11.0)
[2017-11-21 07:33] LABS: BICARBONATE 28.3 MEQ/L (21.0-32.0); CREATININE 0.86 MG/DL (0.60-1.30)
[2017-11-21 08:00] VITALS: BP 132/78; PULSE 73; RESP 20; TEMP 97.9; O2SAT 96
[2017-11-21] MEDS: CIPROFLOXACIN 400 MG PREMIX 200 ML IV SCH ×2 (08:55→21:29)
[2017-11-21] MEDS: SODIUM CHLORIDE 0.9% FLUSH 10 ML FLUSH IV FLUSH SCH ×2 (08:56→21:00)
[2017-11-21] MEDS: FAMOTIDINE 20 MG/2 ML VIAL IV PUSH SCH ×2 (08:56→21:30)
[2017-11-21] MEDS: SODIUM CHLOR 0.9% 1000 ML INJ 1,000 ML IV SCH ×3 (08:56→23:29)
--- NOTE | 2017-11-21 09:24 | MP ---
cc: Bruno Garrison MD DATE OF OPERATION: 11/20/2017 PREOPERATIVE DIAGNOSIS: Obstructing colon cancer. POSTOPERATIVE DIAGNOSIS: Obstructing colon cancer with metastases. ANESTHESIA: General endotracheal. SURGEON: Bruno Garrison MD RECREATION THERAPY AIDE: ARIANNA Reilly ESTIMATED BLOOD LOSS: 100 mL. INTRAVENOUS FLUIDS: 2700 mL crystalloid. COMPLICATIONS: None. DRAINS: None. SPECIMENS: Sigmoid colon and omentum to pathology. PROCEDURE PERFORMED: Exploratory laparotomy with sigmoid colon resection, partial omentectomy and end colostomy with Buffy's pouch. PROCEDURE IN DETAIL: The patient was taken to the operating room and placed on the operating table in the supine position. After an adequate level of general endotracheal anesthesia was achieved, the abdomen was shaved, prepped and draped. Timeout was taken, confirming the correct patient, site and procedure to be performed. Skin was incised from the suprapubic area up and around the umbilicus to the right. Peritoneal cavity was entered uneventfully. A small amount of ascites was noted. Omentum was plastered to the left lower quadrant and this was taken off of the peritoneum with electrocautery. The patient was noted to have multiple metastatic lesions in his omentum. The primary lesion was seen to be in the sigmoid colon. The line of Toldt was mobilized and with further mobilization, a position approximately 10 cm distal to the lesion was selected and the colon divided here. The distal sigmoid colon was dissected free and packed away. The left lower quadrant was dissected and the left ureter was identified and kept out of the dissection. Dissection was carried back to the base of the left colic artery and vein and these were clamped, ligated and divided. The sigmoid and descending colon were then mobilized to a level approximately 10 cm proximal to the lesion and mesentery investing this area was taken down with a Harmonic scalpel. The specimen was marked with a silk suture and passed off the table, after stapling the proximal end with a [id number] stapler. The omental lesions were then taken down with an omentectomy by utilizing the Harmonic scalpel. This was removed in segments and submitted for specimen analysis as well. When this had been completed, the bulk of the tumor had been removed, although the tumor was peeled off of the sidewall and a loop of small bowel was also involved with some tumor adhered to the primary site. With hemostasis assured, a colostomy was created lateral and slightly superior to the umbilicus and brought through the rectus muscles after removing an ellipse of skin. The posterior fascia was opened with electrocautery and a Carolina clamp was used to bring the descending colon through the abdominal wall. The abdomen was then closed with a looped #1 PDS suture. The skin was closed with marli. The colostomy was fixed to the fascia with two 3-0 Vicryl sutures. The colostomy was matured with 3-0 Vicryl sutures after removing the staple line. There was no intra-abdominal spillage of stool. A FREEMAN dressing was applied to the midline wound and a 70 mm colostomy appliance was applied to the colostomy. The patient was extubated and taken back to the recovery room in stable condition. Sponge, needle and instrument counts were reported to be correct. MD HATTIE Stokes/ANOOP , 10:10 PM , 11:07 PM
--- NOTE | 2017-11-21 10:06 | HHI.PR ---
Subjective Subjective Notes Up to chair Has walked in hallways this morning Objective Vitals/I&O Vital Signs Date Time Temp Pulse Resp B/P (MAP) Pulse Ox O2 Delivery O2 Flow Rate FiO2 11/21/17 08:00 97.9 73 20 132/78 (96) 96 11/20/17 23:00 Nasal Cannula 2 11/19/17 10:05 21 Labs Laboratory Tests Test 11/20/17 22:12 11/21/17 06:20 White Blood Count 20.0 12.8 Red Blood Count 4.32 3.96 Hemoglobin 12.2 11.5 Hematocrit 36.3 33.3 Mean Corpuscular Volume 84.1 84.1 Mean Corpuscular Hemoglobin 28.4 28.9 Mean Corpuscular Hemoglobin Concent 33.7 34.4 Red Cell Distribution Width 14.0 14.1 Platelet Count 250 225 Mean Platelet Volume 8.6 9.1 Neutrophils (%) (Auto) 91.0 83.9 Lymphocytes (%) (Auto) 5.2 9.3 Monocytes (%) (Auto) 3.6 6.7 Eosinophils (%) (Auto) 0.0 0.0 Basophils (%) (Auto) 0.2 0.1 Neutrophils # (Auto) 18.2 10.7 Lymphocytes # (Auto) 1.0 1.2 Monocytes # (Auto) 0.7 0.9 Eosinophils # (Auto) 0.0 0.0 Basophils # (Auto) 0.0 0.0 CBC Comment DIFF FINAL DIFF FINAL Differential Comment Blood Urea Nitrogen 12 11 Creatinine 0.95 0.86 Random Glucose 151 119 Calcium Level 8.1 8.0 Sodium Level 137 139 Potassium Level 3.8 3.8 Chloride Level 102 104 Carbon Dioxide Level 28.9 28.3 Anion Gap 6 7 Estimat Glomerular Filtration Rate 84 94 Radiology Last 48 hours Impressions Abdomen/Pelvis CT 11/16/17 1707 Signed Impressions: Service Date/Time: October 18:51 - CONCLUSION: 1. Distal left colonic stricture which is associated with a colonic mass and adjacent soft tissue nodules are as measured above. Primary differential diagnosis is a colonic malignancy. Cannot exclude a complicated diverticulitis. There is dilatation of the colon proximal to the obstruction. Small bowel also mildly dilated. Rick Hercules MD Cardiovascular: Regular Lungs: Clear Abdomen: Other (Midline incision with FREEMAN dressing; colostomy stoma pink; minimal thin drainage ) Extremities: No edema A/P Assessment and Plan 52 year old male POD1 Exploratory laparotomy, sigmoid colon resection; End colostomy with Conroy's pouch; Partial omentectomy -NPO -Okay to clamp NGT to ambulate in hallways -OOB and mobilize -Will start Lovenox this evening -Await pathology -Await bowel function -Consult to customer advisor for new colostomy Attending Note - Dr. Garrison Discussed findings with patient; likely malignant process with mets Dressing with minimal drainage Colostomy viable; FREEMAN dressing reapplied by FISH FARM LABORER and wound care nurse. The exam, history, and the medical decision-making described in the above note were completed with the assistance of the mid-level provider. I reviewed and agree with the findings presented. I attest that I had a [id number] encounter with the patient on the same day, and personally performed and documented my assessment and findings in the medical record. Maritza MorseP/First Catherine FLORESP Nov 21, 2017 10:06 Bruno Garrison MD Nov 28, 2017 16:59
--- NOTE | 2017-11-21 11:43 | HHI.PR ---
Subjective Remarks in no acute distress. NG tube in place. pain is controlled. no nausea or vomiting. Objective Vitals Vital Signs Date Time Temp Pulse Resp B/P (MAP) Pulse Ox O2 Delivery O2 Flow Rate FiO2 11/21/17 08:00 97.9 73 20 132/78 (96) 96 11/21/17 05:27 18 11/21/17 05:25 18 11/21/17 04:00 98.3 79 18 145/90 (108) 96 11/21/17 00:00 99 18 145/88 (107) 96 11/20/17 23:00 87 17 164/89 (114) 98 Nasal Cannula 2 11/20/17 22:46 17 11/20/17 22:45 98.7 86 17 164/93 (116) 97 Nasal Cannula 2 11/20/17 22:30 73 19 161/96 (117) 98 Nasal Cannula 2 11/20/17 22:15 87 18 154/89 (110) 98 Nasal Cannula 2 11/20/17 22:00 83 17 175/71 (105) 99 Nasal Cannula 2 11/20/17 22:00 17 11/20/17 21:50 90 14 168/99 (122) 99 Nasal Cannula 3 11/20/17 21:47 98.6 87 14 167/102 (123) 99 Nasal Cannula 3 11/20/17 16:11 98.7 67 18 145/80 (101) 96 11/20/17 12:16 97.3 69 18 170/99 (122) 96 I/O 11/20/17 11/20/17 11/20/17 11/21/17 11/21/17 11/21/17 07:00 15:00 23:00 07:00 15:00 23:00 Intake Total 0 ml 2700 ml 828.9 ml 0 ml Output Total 1875 ml 150 ml 950 ml 400 ml Balance -1875 ml -150 ml 1750 ml 428.9 ml 0 ml Intake Oral 0 ml 0 ml 0 ml IV Total 828.9 ml Other 2700 ml Output Urine Total 1275 ml 150 ml 250 ml 400 ml Gastric Drainage Total 600 ml 600 ml 0 ml Estimated Blood Loss 100 ml # Voids 2 # Bowel Movements 0 Result Diagram: 11/21/17 0620 11/21/17 0620 Imaging Last Impressions Abdomen/Pelvis CT 11/16/171706 Signed Impressions: Service Date/Time: October 18:51 - CONCLUSION: 1. Distal left colonic stricture which is associated with a colonic mass and adjacent soft tissue nodules are as measured above. Primary differential diagnosis is a colonic malignancy. Cannot exclude a complicated diverticulitis. There is dilatation of the colon proximal to the obstruction. Small bowel also mildly dilated. Rick Hercules MD Objective Remarks GENERAL: This is a well-nourished, well-developed patient, in no apparent distress. CARDIOVASCULAR: Regular rate and regular rhythm without murmurs, gallops, or rubs. RESPIRATORY: Clear to auscultation. Breath sounds equal bilaterally. No wheezes , rales, or rhonchi. GASTROINTESTINAL: colostomy in place. MUSCULOSKELETAL: Extremities without clubbing, cyanosis, or edema. NEURO: Alert & Oriented x4 to person, place, time, situation. Moves all ext x4 Procedures colonoscopy/ Exploratory laparotomy, sigmoid colon resection/ End colostomy with Conroy's pouch/ Partial omentectomy Medications and IVs Inpatient Medications Chlorhexidine Gluconate (Chlorhexidine 2% Cloth) 3 pack GOVERNMENT AFFAIRS FELLOW PRN TOPICAL SEE LABEL COMMENTS; Start 11/19/17 at 18:15; Stop 11/22/17 at 18:14 Ciprofloxacin/ Dextrose 200 ml @ 200 mls/hr Q12H IV Last administered on at 08:55; Start 11/17/17 at 08:00 Famotidine (Pepcid Inj) 20 mg Q12H IV PUSH Last administered on 11/21/17at 08:56 ; Start 11/20/17 at 22:00 Insulin Human Regular (NovoLIN R INJ) See Protocol Table ... GOVERNMENT AFFAIRS FELLOW PRN SQ SEE PROTOCOL TABLE; Start 11/19/17 at 18:15; Stop 11/22/17 at 18:14 Lactated Ringer's 1,000 ml @ 30 mls/hr Q24H PRN IV SEE LABEL COMMENTS Last administered on 11/20/17at 10:02; Start 11/19/17 at 18:15; Stop 11/22/17 at 18:14 Lorazepam (Ativan Inj) 1 mg Q6H PRN IV PUSH insomnia or anxiety; Start at 18:00 Magnesium Citrate (Citroma Liq) 300 ml ONCE ONCE PO Last administered on at 23:05; Start 11/17/17 at 23:00; Stop 11/17/17 at 23:01; Status DC Metoprolol Tartrate (Lopressor) 25 mg GOVERNMENT AFFAIRS FELLOW PRN PO SEE LABEL COMMENTS; Start 11/19/17 at 18:15; Stop 11/22/17 at 18:14 Metronidazole 100 ml @ 100 mls/hr Q6H IV Last administered on 11/21/17at 08:55 ; Start 11/17/17 at 02:00 Miscellaneous Information ALL NURSING DEPARTME... UNSCH PRN .XX SEE LABEL COMMENTS; Start 11/20/17 at 22:15; Stop 11/21/17 at 22:14 Morphine Sulfate (Morphine 1 Mg/ ml IMAGE CONSULTANT) 30 mg UNSCH IV Last administered on at 05:25; Start 11/20/17 at 22:00 Morphine Sulfate (Morphine Inj) 2 mg Q3H PRN IV PUSH pain >5 Last administered on 11/20/17at 02:17; Start 11/16/17 at 20:15 Naloxone HCl (Narcan Inj) 0.4 mg UNSCH PRN IV PUSH RESPIRATORY RATE LESS THAN 10; Start 11/20/17 at 22:00 Ondansetron HCl (Zofran Inj) 4 mg Q6H PRN IVP NAUSEA OR VOMITING Last administered on 11/19/17at 00:09; Start 11/16/17 at 20:00 IMAGE CONSULTANT Dosage Infused (Pha) 1 Q8HR .XX Last administered on 11/21/17at 05:27; Start 11/20/17 at 22:00 Povidone Iodine (Betadine 5% Antisepsis Kit) 1 applic GOVERNMENT AFFAIRS FELLOW PRN EACH NARE SEE LABEL COMMENTS; Start 11/19/17 at 18:15; Stop 11/22/17 at 18:14 Sodium Biphosphate/ Sodium Phosphate (Fleets Enema (Adult)) 133 ml ONCE ONCE RECTAL Last administered on 11/17/17at 23:03; Start 11/17/17 at 20:00; Stop at 20:01; Status DC Sodium Chloride 500 ml @ 30 mls/hr [id number] PRN IV SEE LABEL COMMENTS; Start at 18:15; Stop 11/22/17 at 18:14 Sodium Chloride (NS Flush) 2 ml BID IV FLUSH Last administered on 11/20/17at 22: 15; Start 11/16/17 at 21:00 A/P Problem List: (1) Partial intestinal obstruction ICD Code: K56.600 - Partial intestinal obstruction, unspecified as to cause Status: Acute (2) Mass of colon ICD Code: K63.9 - Disease of intestine, unspecified Status: Acute (3) Diverticulitis large intestine ICD Code: K57.32 - Diverticulitis of large intestine without perforation or abscess without bleeding Status: Acute Assessment and Plan A/P Partial intestinal obstruction Radiology noted a colonic stricture associated with a mass in soft tissue swelling in the colon s/p colonoscopy and Exploratory laparotomy, sigmoid colon resection/End colostomy with Conroy's pouch and Partial omentectomy awaiting pathology. management per general surgery. Problem Qualifiers (1) Partial intestinal obstruction: Qualified Codes: K56.690 - Other partial intestinal obstruction (2) Diverticulitis large intestine: Qualified Codes: K57.33 - Diverticulitis of large intestine without perforation or abscess with bleeding Salvatore Romo MD Nov 21, 2017 11:43
--- NOTE | 2017-11-21 11:59 | HHI.FF ---
Face to Face Verification Diagnosis: (1) Diverticulitis large intestine Home Health Nursing Order: Wound care and dressing changes Instructions: New colostomy ---continued care and teaching I have seen patient Sonny Ordoñez on 11/21/17. My clinical findings support the need for the requested home health care services because: Limited ability to care for self High risk of falls I certify that my clinical findings support that this patient is homebound because: Post-op weakness Maritza Morse. RUBIN/[employer] RESPIRATORY TECHNICIAN Nov 21, 2017 11:59
[2017-11-21 12:00] VITALS: BP 129/72; PULSE 71; RESP 20; TEMP 98; O2SAT 95
--- NOTE | 2017-11-21 15:00 | PD.WCN.NOT ---
Wound Consult Description: Consult for NEW OSTOMY TEACHING per Dr Garrison Communicated with: Patient RUBIN Morse, RN Recommendation: Reference the educational booklet left at bedside for reinforcement of teaching today. Empty pouch of effluent when 1/3-1/2 full. Change pouching system every 5-7 days and PRN for leaks. Chew food well. Stay hydrated. Write down any questions for tomorrow with next teaching session. Additional Information: Patient seen on for ostomy assessment and teaching with pouching system change using 1 piece open ended pouch Activ Life by [facility]. Ostomy Type: Colostomy Surgeon: Bruno Garrison MD Date of Surgery: Nov 20, 2017 Complete: Starter kit (Consent obtained for starter kit to be sent), Education materials Educated patient on: Stoma appearance Stoma function When to seek medical attention How often to empty pouch How to empty pouch When and how to change pouching system How to measure stoma How to cleanse around the stoma Chewing foods well and staying hydrated Cutting wafer to fit flush stoma Not using a convex appliance until the sutures have dissolved to avoid mucocutaneous separation Additional information Patient seen with RUBIN Morse for removal of Agatha dressing and Ostomy appliance. Stoma is red, shaped like a jeannine, moist, flush with surrounding abdomen, functioning with flattus, no effluent noted as of yet, and measuring 1 1/4". There is minimal sanguinous drainage noted in pouch that was discarded with removal of pouch using adhesive removal wipes. Mucocutaneous junction is noted with sutures otherwise unremarkable. Peristomal skin is noted with midline marli over the approximated incision line with scant serosang drainage to which a new Agatha dressing was placed and reinforced using strips to window pane primary dressing. Stoma was outlined in an Robert seal prior to placing a cut to fit one piece appliance over the Agatha dressing which is to stay on for 7 days. Stoma pouching system may remain in place for 5-7 days unless leaking then the pouch should be removed and replaced. Yola Murillo [facility] Nov 21, 2017 14:57
[2017-11-21 16:00] VITALS: BP 152/89; PULSE 71; RESP 20; TEMP 97.6; O2SAT 99
[2017-11-21 20:00] VITALS: BP 133/73; PULSE 68; RESP 18; TEMP 97.9; O2SAT 95
[2017-11-21] MEDS: ENOXAPARIN SODIUM 40 MG/0.4 ML SYRINGE SQ SCH (21:30)
[2017-11-22] VITALS: BP 115/65; PULSE 74; RESP 18; TEMP 98.1; O2SAT 97
[2017-11-22] MEDS: metroNIDAZOLE 500 MG INJ 100 ML IV SCH ×4 (02:07→20:56)
[2017-11-22 04:00] VITALS: BP 107/60; PULSE 78; RESP 18; TEMP 98; O2SAT 95
[2017-11-22] MEDS: PCA - TOTAL MG MORPHINE DELIVERED PER SHIFT SCH ×3 (05:24→21:58)
[2017-11-22] MEDS: SODIUM CHLOR 0.9% 1000 ML INJ 1,000 ML IV SCH ×4 (06:40→22:32)
[2017-11-22 08:00] VITALS: BP 141/87; PULSE 74; RESP 18; TEMP 97.4; O2SAT 97
[2017-11-22] MEDS: FAMOTIDINE 20 MG/2 ML VIAL IV PUSH SCH ×2 (09:40→20:56)
[2017-11-22] MEDS: CIPROFLOXACIN 400 MG PREMIX 200 ML IV SCH ×2 (09:40→21:56)
[2017-11-22] MEDS: SODIUM CHLORIDE 0.9% FLUSH 10 ML FLUSH IV FLUSH SCH ×2 (09:40→20:56)
--- NOTE | 2017-11-22 09:57 | HHI.PR ---
Subjective Remarks in no acute distress. pain is controlled. no nausea/vomiting. no new complaints. Objective Vitals Vital Signs Date Time Temp Pulse Resp B/P (MAP) Pulse Ox O2 Delivery O2 Flow Rate FiO2 11/22/17 08:00 97.4 74 18 141/87 (105) 97 11/22/17 05:24 16 11/22/17 04:00 98.0 78 18 107/60 (76) 95 11/22/17 00:00 98.1 74 18 115/65 (82) 97 11/21/17 21:30 18 11/21/17 20:00 97.9 68 18 133/73 (93) 95 11/21/17 16:00 97.6 71 20 152/89 (110) 99 11/21/17 12:00 98.0 71 20 129/72 (91) 95 I/O 11/21/17 11/21/17 11/21/17 11/22/17 11/22/17 11/22/17 07:00 15:00 23:00 07:00 15:00 23:00 Intake Total 828.9 ml 450 ml 254 ml 2205 ml Output Total 400 ml 1500 ml 800 ml 775 ml Balance 428.9 ml -1050 ml -546 ml 1430 ml Intake Oral 0 ml 50 ml 50 ml 0 ml IV Total 828.9 ml 400 ml 204 ml 2205 ml Output Urine Total 400 ml 1500 ml 800 ml 525 ml Gastric Drainage Total 0 ml 250 ml # Bowel Movements 0 Result Diagram: 11/21/17 0620 11/21/17 0620 Imaging Last Impressions Abdomen/Pelvis CT 11/16/17 1707 Signed Impressions: Service Date/Time: October 18:51 - CONCLUSION: 1. Distal left colonic stricture which is associated with a colonic mass and adjacent soft tissue nodules are as measured above. Primary differential diagnosis is a colonic malignancy. Cannot exclude a complicated diverticulitis. There is dilatation of the colon proximal to the obstruction. Small bowel also mildly dilated. Rick Hercules MD Objective Remarks GENERAL: This is a well-nourished, well-developed patient, in no apparent distress. CARDIOVASCULAR: Regular rate and regular rhythm without murmurs, gallops, or rubs. RESPIRATORY: Clear to auscultation. Breath sounds equal bilaterally. No wheezes , rales, or rhonchi. GASTROINTESTINAL: colostomy in place. MUSCULOSKELETAL: Extremities without clubbing, cyanosis, or edema. NEURO: Alert & Oriented x4 to person, place, time, situation. Moves all ext x4 Procedures colonoscopy/ Exploratory laparotomy, sigmoid colon resection/ End colostomy with Conroy's pouch/ Partial omentectomy Medications and IVs Inpatient Medications Chlorhexidine Gluconate (Chlorhexidine 2% Cloth) 3 pack QUARRY SUPERVISOR PRN TOPICAL SEE LABEL COMMENTS; Start 11/19/17 at 18:15; Stop 11/22/17 at 18:14 Ciprofloxacin/ Dextrose 200 ml @ 200 mls/hr Q12H IV Last administered on at 09:40; Start 11/17/17 at 08:00 Enoxaparin Sodium (Lovenox Inj) 40 mg Q24H SQ Last administered on 11/21/17at 21 :30; Start 11/21/17 at 21:00 Famotidine (Pepcid Inj) 20 mg Q12H IV PUSH Last administered on 11/22/17at 09:40 ; Start 11/20/17 at 22:00 Insulin Human Regular (NovoLIN R INJ) See Protocol Table ... QUARRY SUPERVISOR PRN SQ SEE PROTOCOL TABLE; Start 11/19/17 at 18:15; Stop 11/22/17 at 18:14 Lactated Ringer's 1,000 ml @ 30 mls/hr Q24H PRN IV SEE LABEL COMMENTS Last administered on 11/20/17at 10:02; Start 11/19/17 at 18:15; Stop 11/22/17 at 18:14 Lorazepam (Ativan Inj) 1 mg Q6H PRN IV PUSH insomnia or anxiety; Start at 18:00 Magnesium Citrate (Citroma Liq) 300 ml ONCE ONCE PO Last administered on at 23:05; Start 11/17/17 at 23:00; Stop 11/17/17 at 23:01; Status DC Metoprolol Tartrate (Lopressor) 25 mg QUARRY SUPERVISOR PRN PO SEE LABEL COMMENTS; Start 11/19/17 at 18:15; Stop 11/22/17 at 18:14 Metronidazole 100 ml @ 100 mls/hr Q6H IV Last administered on 11/22/17at 09:40 ; Start 11/17/17 at 02:00 Miscellaneous Information ALL NURSING DEPARTME... UNSCH PRN .XX SEE LABEL COMMENTS; Start 11/20/17 at 22:15; Stop 11/21/17 at 22:14; Status DC Morphine Sulfate (Morphine 1 Mg/ ml ORACLE WMS CONSULTANT) 30 mg UNSCH IV Last administered on at 19:27; Start 11/20/17 at 22:00 Morphine Sulfate (Morphine Inj) 2 mg Q3H PRN IV PUSH pain >5 Last administered on 11/20/17at 02:17; Start 11/16/17 at 20:15 Naloxone HCl (Narcan Inj) 0.4 mg UNSCH PRN IV PUSH RESPIRATORY RATE LESS THAN 10; Start 11/20/17 at 22:00 Ondansetron HCl (Zofran Inj) 4 mg Q6H PRN IVP NAUSEA OR VOMITING Last administered on 11/19/17at 00:09; Start 11/16/17 at 20:00 ORACLE WMS CONSULTANT Dosage Infused (Pha) 1 Q8HR .XX Last administered on 11/22/17at 05:24; Start 11/20/17 at 22:00 Povidone Iodine (Betadine 5% Antisepsis Kit) 1 applic QUARRY SUPERVISOR PRN EACH NARE SEE LABEL COMMENTS; Start 11/19/17 at 18:15; Stop 11/22/17 at 18:14 Sodium Biphosphate/ Sodium Phosphate (Fleets Enema (Adult)) 133 ml ONCE ONCE RECTAL Last administered on 11/17/17at 23:03; Start 11/17/17 at 20:00; Stop at 20:01; Status DC Sodium Chloride 500 ml @ 30 mls/hr [id number] PRN IV SEE LABEL COMMENTS; Start at 18:15; Stop 11/22/17 at 18:14 Sodium Chloride (NS Flush) 2 ml BID IV FLUSH Last administered on 11/22/17at 09: 40; Start 11/16/17 at 21:00 A/P Problem List: (1) Partial intestinal obstruction ICD Code: K56.600 - Partial intestinal obstruction, unspecified as to cause Status: Acute (2) Mass of colon ICD Code: K63.9 - Disease of intestine, unspecified Status: Acute (3) Diverticulitis large intestine ICD Code: K57.32 - Diverticulitis of large intestine without perforation or abscess without bleeding Status: Acute Assessment and Plan A/P Partial intestinal obstruction Radiology noted a colonic stricture associated with a mass in soft tissue swelling in the colon s/p colonoscopy and Exploratory laparotomy, sigmoid colon resection/End colostomy with Conroy's pouch and Partial omentectomy awaiting pathology. management per general surgery. DVT prophylaxis with subq Lovenox. Discharge Planning when cleared by surgery. Problem Qualifiers (1) Partial intestinal obstruction: Qualified Codes: K56.690 - Other partial intestinal obstruction (2) Diverticulitis large intestine: Qualified Codes: K57.33 - Diverticulitis of large intestine without perforation or abscess with bleeding Salvatore Romo MD Nov 22, 2017 09:57
--- NOTE | 2017-11-22 10:11 | HHI.PR ---
Subjective Subjective Notes Sitting on the side of the bed Feeling better today ---pain better Wondering why he feels congested Objective Vitals/I&O Vital Signs Date Time Temp Pulse Resp B/P (MAP) Pulse Ox O2 Delivery O2 Flow Rate FiO2 11/22/17 08:00 97.4 74 18 141/87 (105) 97 11/20/17 23:00 Nasal Cannula 2 11/19/17 10:05 21 Radiology Last 48 hours Impressions Abdomen/Pelvis CT 11/16/17 1707 Signed Impressions: Service Date/Time: October 18:51 - CONCLUSION: 1. Distal left colonic stricture which is associated with a colonic mass and adjacent soft tissue nodules are as measured above. Primary differential diagnosis is a colonic malignancy. Cannot exclude a complicated diverticulitis. There is dilatation of the colon proximal to the obstruction. Small bowel also mildly dilated. Rick Hercules MD Cardiovascular: Regular Lungs: Clear Abdomen: Other (FREEMAN in place with good seal; colostomy in place with minimal thin draiange; much less distended than yesterday ) Extremities: No edema A/P Assessment and Plan 52 year old male POD2 Exploratory laparotomy, sigmoid colon resection; End colostomy with Conroy's pouch; Partial omentectomy -NPO; okay for ice chips -Okay to clamp NGT to ambulate in hallways -OOB and mobilize -Lovenox -IS -Await pathology -Await bowel function -RN Yola following for continues Ostomy teaching Attending Note - Dr. Garrison Wound clean with minimal drainage on dressing. Need to go slow on PO intake, as pt was nearly obstructed preoperatively The exam, history, and the medical decision-making described in the above note were completed with the assistance of the mid-level provider. I reviewed and agree with the findings presented. I attest that I had a [id number] encounter with the patient on the same day, and personally performed and documented my assessment and findings in the medical record. Maritza Morse/First Catherine CONKLIN Nov 22, 2017 10:11 Bruno Garrison MD Nov 28, 2017 17:04
[2017-11-22 12:00] VITALS: BP 126/68; PULSE 79; RESP 19; TEMP 98.6; O2SAT 97
[2017-11-22 12:05] LABS: BASOPHIL % 0.3 % (0.0-2.0); EOSINOPHIL % 0.5 % (0.0-4.0); HEMATOCRIT 33.2 % (39.0-51.0); HEMOGLOBIN 11.2 GM/DL (13.0-17.0); LYMPH % 16.7 % (9.0-44.0); LYMPHOCYTE # 1.5 TH/MM3 (1.0-4.8); MEAN CELL VOLUME 85.8 FL (80.0-100.0); MEAN CORPUSCULAR HEMOGLOBIN 29.1 PG (27.0-34.0); MEAN CORPUSCULAR HGB CONC 33.9 % (32.0-36.0); MEAN PLATELET VOLUME 8.9 FL (7.0-11.0); MONO % 7.6 % (0.0-8.0); MONOCYTE # 0.7 TH/MM3 (0-0.9); NEUT % 74.9 % (16.0-70.0); PLATELET COUNT 183 TH/MM3 (150-450); RED BLOOD COUNT 3.86 MIL/MM3 (4.50-5.90); RED CELL DISTRIBUTION WIDTH 14.4 % (11.6-17.2); WHITE BLOOD COUNT 9.3 TH/MM3 (4.0-11.0)
[2017-11-22 12:29] LABS: BICARBONATE 28.7 MEQ/L (21.0-32.0); CALCIUM 8.1 MG/DL (8.5-10.1); CREATININE 0.72 MG/DL (0.60-1.30)
--- NOTE | 2017-11-22 12:54 | PD.WCN.NOT ---
Wound Consult Description: Consult for NEW OSTOMY TEACHING per Dr Garrison Communicated with: JB Salguero ARNP Patient Recommendation: Reference the educational booklet left at bedside for reinforcement of teaching again today and write down any questions you may have. Empty pouch of effluent when 1/3-1/2 full. Change pouching system every 5-7 days and PRN for leaks. Chew food well (when given a diet). Stay hydrated currently with IV fluids (ice chips only for now). Additional Information: Patient seen on [address] [place] [address] for ostomy teaching and assessment of pouching system placed yesterday 11/21/17 Ostomy Type: Colostomy Surgeon: Bruno Garrison MD Date of Surgery: Nov 20, 2017 Complete: Starter kit (Sent out today via 2 day air mail to arrive 11/24), Education materials (left at bedside), Rx (left on chart for use once sutures are dissolved), Other (7 appliances, nyla seals, stoma paste, Cavilon skin prep, in patient room to take home at discharge.) Educated patient on: Supplies ordered and brought to room for discharge Output of stoma Stoma appearance Size of stoma Starter Kit sent out today to arrive Monday Probable ostomy appliance change Monday prior to weekend/Discharge Ambulating Using the one piece cut to fit appliance until sutures have healed When to seek medical attention (for color change or no output from stoma) Additional information Patient seen on [address] [place] [address] for ostomy assessment and teaching. Appliance is intact and noted without leaks. There is minimal sanguinous drainage noted in pouch that was not emptied at this time. Stoma is red, moist, flush with surrounding skin, flatus present, no effluent visualized. Patient was resting in bed on his right side before, during, and after assessment. [facility]illo [facility] Nov 22, 2017 12:54
[2017-11-22 16:00] VITALS: BP 139/83; PULSE 78; RESP 18; TEMP 97.9; O2SAT 97
[2017-11-22] MEDS: MORPHINE SULFATE 30 MG/30 ML PCA IV SCH (17:45)
[2017-11-22 20:00] VITALS: BP 160/95; PULSE 76; RESP 18; TEMP 98.6; O2SAT 96
[2017-11-22] MEDS: guaiFENesin E.R. 600 MG TAB PO SCH (20:55)
[2017-11-22] MEDS: ENOXAPARIN SODIUM 40 MG/0.4 ML SYRINGE SQ SCH (20:57)
[2017-11-23] VITALS: BP 127/64; PULSE 70; RESP 18; TEMP 97.9; O2SAT 98
[2017-11-23] MEDS: metroNIDAZOLE 500 MG INJ 100 ML IV SCH ×3 (01:11→13:28)
[2017-11-23] MEDS: PCA - TOTAL MG MORPHINE DELIVERED PER SHIFT SCH ×2 (05:31→22:00)
[2017-11-23 08:00] VITALS: BP 156/86; PULSE 73; RESP 18; TEMP 98.4; O2SAT 96
[2017-11-23] MEDS: guaiFENesin E.R. 600 MG TAB PO SCH ×2 (08:44→21:08)
[2017-11-23] MEDS: SODIUM CHLORIDE 0.9% FLUSH 10 ML FLUSH IV FLUSH SCH ×2 (08:44→21:08)
[2017-11-23] MEDS: FAMOTIDINE 20 MG/2 ML VIAL IV PUSH SCH ×2 (08:44→21:07)
[2017-11-23] MEDS: CIPROFLOXACIN 400 MG PREMIX 200 ML IV SCH (08:45)
[2017-11-23] MEDS: SODIUM CHLOR 0.9% 1000 ML INJ 1,000 ML IV SCH (08:45)
--- NOTE | 2017-11-23 10:08 | PD.WCN.NOT ---
Wound Consult Description: Consult for NEW OSTOMY TEACHING per Dr Garrison Communicated with: Patient Francisca, RN RUBIN Morse Recommendation: Reference the educational booklet left at bedside for reinforcement of teaching and write down any questions. Empty pouch of effluent when 1/3-1/2 full. Change pouching system every 5-7 days and PRN for leaks. Chew food well (when given a diet). Stay hydrated currently with IV fluids and clear liquids. Additional Information: Patient seen this am for ostomy assessment and teaching. Ostomy Type: Colostomy Surgeon: Bruno Garrison MD Date of Surgery: Nov 20, 2017 Complete: Starter kit (Sent out yesterday via 2 day air mail to arrive Monday11/24/17), Education materials (available at bedside), Rx (left on chart for use once sutures are dissolved), Other (7 appliances, nyla seals, stoma paste, Cavilon skin prep, in patient room to take home at discharge.) Educated patient on: When to seek medical attention When and how often to change pouching system When to empty pouch How and when to use supplies ordered Peristomal skin care When to use the convexity appliances (after sutures dissolve) Cut to fit appliances to use now Additional information Patient seen on for ostomy assessment and reinforcement of teaching regarding midline incision and ostomy care. Patient was sitting up in chair upon writers arrival to room. Patient states that he has emptied his pouch 2 times, once last night and once this morning, he states that his NG tube can come out now. When asked who said that the patient states himself. RUBIN Morse was notified of the stoma functioning and the request for NG tube removal. One piece pouching system was visualized to be intact and noted without leaks. There is minimal residual of soft brown stool noted in pouch. Patient took a picture of his stool that he emptied to show radio script writer. Patient had questions regarding his midline incision and peristomal skin care that were answered. Plan is for ostomy appliance change tomorrow prior to the weekend. Supplies ordered from [facility] for this and are available in patient room. [facility] Nov 23, 2017 10:08
--- NOTE | 2017-11-23 10:09 | HHI.PR ---
Subjective Remarks in no acute distress. pain is controlled. overall doing fine. with no new complaints. Objective Vitals Vital Signs Date Time Temp Pulse Resp B/P (MAP) Pulse Ox O2 Delivery O2 Flow Rate FiO2 11/23/17 05:31 16 11/23/17 00:00 97.9 70 18 127/64 (85) 98 11/22/17 21:58 16 11/22/17 20:00 98.6 76 18 160/95 (116) 96 11/22/17 16:00 97.9 78 18 139/83 (101) 97 11/22/17 12:00 98.6 79 19 126/68 (87) 97 I/O 11/22/17 11/22/17 11/22/17 11/23/17 11/23/17 11/23/17 07:00 15:00 23:00 07:00 15:00 23:00 Intake Total 2205 ml 1000 ml 2180 ml 1316 ml Output Total 775 ml 1950 ml 1250 ml Balance 1430 ml 1000 ml 230 ml 66 ml Intake Oral 0 ml 480 ml 460 ml IV Total 2205 ml 1000 ml 1700 ml 856 ml Output Urine Total 525 ml 1200 ml 800 ml Stool Total 0 ml Gastric Drainage Total 250 ml 750 ml 450 ml # Voids 1 # Bowel Movements 0 Result Diagram: 11/22/17 1133 11/22/17 1133 Imaging Last Impressions Abdomen/Pelvis CT 11/16/17 1707 Signed Impressions: Service Date/Time: October 18:51 - CONCLUSION: 1. Distal left colonic stricture which is associated with a colonic mass and adjacent soft tissue nodules are as measured above. Primary differential diagnosis is a colonic malignancy. Cannot exclude a complicated diverticulitis. There is dilatation of the colon proximal to the obstruction. Small bowel also mildly dilated. Rick Hercules MD Objective Remarks GENERAL: This is a well-nourished, well-developed patient, in no apparent distress. CARDIOVASCULAR: Regular rate and regular rhythm without murmurs, gallops, or rubs. RESPIRATORY: Clear to auscultation. Breath sounds equal bilaterally. No wheezes , rales, or rhonchi. GASTROINTESTINAL: colostomy in place. MUSCULOSKELETAL: Extremities without clubbing, cyanosis, or edema. NEURO: Alert & Oriented x4 to person, place, time, situation. Moves all ext x4 Procedures colonoscopy/ Exploratory laparotomy, sigmoid colon resection/ End colostomy with Conroy's pouch/ Partial omentectomy Medications and IVs Inpatient Medications Chlorhexidine Gluconate (Chlorhexidine 2% Cloth) 3 pack RIVER GUIDE PRN TOPICAL SEE LABEL COMMENTS; Start 11/19/17 at 18:15; Stop 11/22/17 at 18:14; Status DC Ciprofloxacin/ Dextrose 200 ml @ 200 mls/hr Q12H IV Last administered on at 08:45; Start 11/17/17 at 08:00 Enoxaparin Sodium (Lovenox Inj) 40 mg Q24H SQ Last administered on 11/22/17at 20 :57; Start 11/21/17 at 21:00 Famotidine (Pepcid Inj) 20 mg Q12H IV PUSH Last administered on 11/23/17at 08:44 ; Start 11/20/17 at 22:00 Guaifenesin (Mucinex Er) 600 mg BID PO Last administered on 11/23/17at 08:44; Start 11/22/17 at 21:00 Insulin Human Regular (NovoLIN R INJ) See Protocol Table ... RIVER GUIDE PRN SQ SEE PROTOCOL TABLE; Start 11/19/17 at 18:15; Stop 11/22/17 at 18:14; Status DC Lactated Ringer's 1,000 ml @ 30 mls/hr Q24H PRN IV SEE LABEL COMMENTS Last administered on 11/20/17at 10:02; Start 11/19/17 at 18:15; Stop 11/22/17 at 18:14 ; Status DC Lorazepam (Ativan Inj) 1 mg Q6H PRN IV PUSH insomnia or anxiety; Start at 18:00 Magnesium Citrate (Citroma Liq) 300 ml ONCE ONCE PO Last administered on at 23:05; Start 11/17/17 at 23:00; Stop 11/17/17 at 23:01; Status DC Metoprolol Tartrate (Lopressor) 25 mg RIVER GUIDE PRN PO SEE LABEL COMMENTS; Start 11/19/17 at 18:15; Stop 11/22/17 at 18:14; Status DC Metronidazole 100 ml @ 100 mls/hr Q6H IV Last administered on 11/23/17at 08:45 ; Start 11/17/17 at 02:00 Miscellaneous Information ALL NURSING DEPARTME... UNSCH PRN .XX SEE LABEL COMMENTS; Start 11/20/17 at 22:15; Stop 11/21/17 at 22:14; Status DC Morphine Sulfate (Morphine 1 Mg/ ml TOE PULLER) 30 mg UNSCH IV Last administered on at 17:45; Start 11/20/17 at 22:00 Morphine Sulfate (Morphine Inj) 2 mg Q3H PRN IV PUSH pain >5 Last administered on 11/20/17at 02:17; Start 11/16/17 at 20:15 Naloxone HCl (Narcan Inj) 0.4 mg UNSCH PRN IV PUSH RESPIRATORY RATE LESS THAN 10; Start 11/20/17 at 22:00 Ondansetron HCl (Zofran Inj) 4 mg Q6H PRN IVP NAUSEA OR VOMITING Last administered on 11/19/17at 00:09; Start 11/16/17 at 20:00 TOE PULLER Dosage Infused (Pha) 1 Q8HR .XX Last administered on 11/23/17at 05:31; Start 11/20/17 at 22:00 Povidone Iodine (Betadine 5% Antisepsis Kit) 1 applic RIVER GUIDE PRN EACH NARE SEE LABEL COMMENTS; Start 11/19/17 at 18:15; Stop 11/22/17 at 18:14; Status DC Sodium Biphosphate/ Sodium Phosphate (Fleets Enema (Adult)) 133 ml ONCE ONCE RECTAL Last administered on 11/17/17at 23:03; Start 11/17/17 at 20:00; Stop at 20:01; Status DC Sodium Chloride 500 ml @ 30 mls/hr [id number] PRN IV SEE LABEL COMMENTS; Start at 18:15; Stop 11/22/17 at 18:14; Status DC Sodium Chloride (NS Flush) 2 ml BID IV FLUSH Last administered on 11/23/17at 08: 44; Start 11/16/17 at 21:00 A/P Problem List: (1) Partial intestinal obstruction ICD Code: K56.600 - Partial intestinal obstruction, unspecified as to cause Status: Acute (2) Mass of colon ICD Code: K63.9 - Disease of intestine, unspecified Status: Acute (3) Diverticulitis large intestine ICD Code: K57.32 - Diverticulitis of large intestine without perforation or abscess without bleeding Status: Acute Assessment and Plan A/P Partial intestinal obstruction colon cancer Radiology noted a colonic stricture associated with a mass in soft tissue swelling in the colon s/p colonoscopy and Exploratory laparotomy, sigmoid colon resection/End colostomy with Conroy's pouch and Partial omentectomy pathology with well-differentiated adenocarcinoma. management per general surgery. oncology evaluation; inpatient vs outpatient. DVT prophylaxis with subq Lovenox. Discharge Planning when cleared by surgery. Problem Qualifiers (1) Partial intestinal obstruction: Qualified Codes: K56.690 - Other partial intestinal obstruction (2) Diverticulitis large intestine: Qualified Codes: K57.33 - Diverticulitis of large intestine without perforation or abscess with bleeding Salvatore Romo MD Nov 23, 2017 10:09
[2017-11-23 12:00] VITALS: BP 150/96; PULSE 70; RESP 18; TEMP 98.2; O2SAT 97
[2017-11-23] MEDS ORDERED: ACETAMINOPHEN/HYDROcodone 325 MG/5 MG TAB PO PRN (12:15)
--- NOTE | 2017-11-23 13:56 | HHI.PR ---
Subjective Subjective Notes Up to chair Feeling more comfortable with the colostomy after visit from ADRIANE Aceves Objective Vitals/I&O Vital Signs Date Time Temp Pulse Resp B/P (MAP) Pulse Ox O2 Delivery O2 Flow Rate FiO2 11/23/17 12:00 98.2 70 18 150/96 (114) 97 11/20/17 23:00 Nasal Cannula 2 11/19/17 10:05 21 Radiology Last 48 hours Impressions Abdomen/Pelvis CT 11/16/17 1707 Signed Impressions: Service Date/Time: October 18:51 - CONCLUSION: 1. Distal left colonic stricture which is associated with a colonic mass and adjacent soft tissue nodules are as measured above. Primary differential diagnosis is a colonic malignancy. Cannot exclude a complicated diverticulitis. There is dilatation of the colon proximal to the obstruction. Small bowel also mildly dilated. Rick Hercules MD Cardiovascular: Regular Lungs: Clear Abdomen: Other (FREEMAN intact with good seal; colostomy with soft brown soft; non distended ) Extremities: No edema A/P Assessment and Plan 52 year old male POD3 Exploratory laparotomy, sigmoid colon resection; End colostomy with Conroy's pouch; Partial omentectomy -DC NGT -Clear liquids -OOB and mobilize -Lovenox -IS -Pathology --- shows adenocarcinoma with metastatic disease to omentum and lymph nodes -Consult to Medical Oncology--- Dr. Garrison discussed with Dr. Hodgson -ADRIANE Aceves following for continues Ostomy teaching Attending Note - Dr. Garrison Wound clean with minimal drainage Colostomy has receded below skin, but not leaking under pouch Discussed port placement with patient; he will need chemotherapy for metastatic disease. Plan placement in AM. GAR discussed with patient, who vocalizes understanding and agrees to proceed. The exam, history, and the medical decision-making described in the above note were completed with the assistance of the mid-level provider. I reviewed and agree with the findings presented. I attest that I had a [id number] encounter with the patient on the same day, and personally performed and documented my assessment and findings in the medical record. Maritza Morse/First Catherine CONKLIN Nov 23, 2017 13:56 Bruno Garrison MD Nov 28, 2017 17:11
[2017-11-23 16:00] VITALS: BP 134/88; PULSE 80; RESP 16; TEMP 98.1; O2SAT 97
[2017-11-23 20:00] VITALS: BP 134/77; PULSE 86; RESP 20; TEMP 97.4; O2SAT 97
[2017-11-23 21:04] VITALS: RESP 18
[2017-11-23] MEDS: ENOXAPARIN SODIUM 40 MG/0.4 ML SYRINGE SQ SCH (21:08)
[2017-11-23] MEDS: ACETAMINOPHEN/HYDROcodone 325 MG/5 MG TAB PO PRN (21:16)
[2017-11-24] VITALS: BP 118/73; PULSE 72; RESP 20; TEMP 98.2; O2SAT 96
[2017-11-24] MEDS ORDERED: CHLORHEXIDINE GLUCONATE 2 % 1 PACK (2 CLOTHS) TOPICAL PRN (03:30)
[2017-11-24] MEDS ORDERED: POVIDONE IODINE 5% (ANTISEPSIS KIT) 4 APPLICATIONS EACH NARE PRN (03:30)
[2017-11-24] MEDS ORDERED: LACTATED RINGER'S 1000 ML IV PRN (03:30)
[2017-11-24] MEDS: PCA - TOTAL MG MORPHINE DELIVERED PER SHIFT SCH ×3 (06:00→20:37)
[2017-11-24 08:00] VITALS: BP 142/93; PULSE 72; RESP 16; TEMP 98.4; O2SAT 97
--- NOTE | 2017-11-24 09:58 | HHI.PR ---
Subjective Remarks in no acute distress. has minimal abdominal pain. no nausea or vomiting. Objective Vitals Vital Signs Date Time Temp Pulse Resp B/P (MAP) Pulse Ox O2 Delivery O2 Flow Rate FiO2 11/24/17 00:00 98.2 72 20 118/73 (88) 96 11/23/17 22:00 18 11/23/17 21:04 18 11/23/17 20:00 97.4 86 20 134/77 (96) 97 11/23/17 16:00 98.1 80 16 134/88 (103) 97 11/23/17 12:00 98.2 70 18 150/96 (114) 97 I/O 11/23/17 11/23/17 11/23/17 11/24/17 11/24/17 11/24/17 07:00 15:00 23:00 07:00 15:00 23:00 Intake Total 1316 ml 300 ml 1378.1 ml 0 ml Output Total 1250 ml 700 ml 0 ml Balance 66 ml 300 ml 678.1 ml 0 ml Intake Oral 460 ml 640 ml 0 ml IV Total 856 ml 300 ml 738.1 ml Output Urine Total 800 ml 400 ml 0 ml Stool Total 0 ml 300 ml Gastric Drainage Total 450 ml Result Diagram: 11/22/17 1133 11/22/17 1133 Imaging Last Impressions Abdomen/Pelvis CT 11/16/17 1707 Signed Impressions: Service Date/Time: October 18:51 - CONCLUSION: 1. Distal left colonic stricture which is associated with a colonic mass and adjacent soft tissue nodules are as measured above. Primary differential diagnosis is a colonic malignancy. Cannot exclude a complicated diverticulitis. There is dilatation of the colon proximal to the obstruction. Small bowel also mildly dilated. Rick Hercules MD Objective Remarks GENERAL: This is a well-nourished, well-developed patient, in no apparent distress. CARDIOVASCULAR: Regular rate and regular rhythm without murmurs, gallops, or rubs. RESPIRATORY: Clear to auscultation. Breath sounds equal bilaterally. No wheezes , rales, or rhonchi. GASTROINTESTINAL: colostomy in place. MUSCULOSKELETAL: Extremities without clubbing, cyanosis, or edema. NEURO: Alert & Oriented x4 to person, place, time, situation. Moves all ext x4 Procedures colonoscopy/ Exploratory laparotomy, sigmoid colon resection/ End colostomy with Conroy's pouch/ Partial omentectomy Medications and IVs Inpatient Medications Acetaminophen/ Hydrocodone Bitart (Yermo 5-325 Mg) 2 tab Q4H PRN PO pain 6-10 ; Start 11/23/17 at 12:15 Chlorhexidine Gluconate (Chlorhexidine 2% Cloth) 3 pack CLAY DRY PRESS OPERATOR PRN TOPICAL SEE LABEL COMMENTS; Start 11/24/17 at 03:30; Stop 11/27/17 at 03:29 Ciprofloxacin/ Dextrose 200 ml @ 200 mls/hr Q12H IV Last administered on at 08:45; Start 11/17/17 at 08:00; Stop 11/23/17 at 16:29; Status DC Enoxaparin Sodium (Lovenox Inj) 40 mg Q24H SQ Last administered on 11/23/17at 21 :08; Start 11/21/17 at 21:00 Famotidine (Pepcid Inj) 20 mg Q12H IV PUSH Last administered on 11/23/17at 21:07 ; Start 11/20/17 at 22:00 Guaifenesin (Mucinex Er) 600 mg BID PO Last administered on 11/23/17at 21:08; Start 11/22/17 at 21:00 Insulin Human Regular (NovoLIN R INJ) See Protocol Table ... CLAY DRY PRESS OPERATOR PRN SQ SEE PROTOCOL TABLE; Start 11/19/17 at 18:15; Stop 11/22/17 at 18:14; Status DC Lactated Ringer's 1,000 ml @ 30 mls/hr Q24H PRN IV SEE LABEL COMMENTS; Start at 03:30; Stop 11/27/17 at 03:29 Lorazepam (Ativan Inj) 1 mg Q6H PRN IV PUSH insomnia or anxiety; Start at 18:00 Magnesium Citrate (Citroma Liq) 300 ml ONCE ONCE PO Last administered on at 23:05; Start 11/17/17 at 23:00; Stop 11/17/17 at 23:01; Status DC Metoprolol Tartrate (Lopressor) 25 mg CLAY DRY PRESS OPERATOR PRN PO SEE LABEL COMMENTS; Start 11/19/17 at 18:15; Stop 11/22/17 at 18:14; Status DC Metronidazole 100 ml @ 100 mls/hr Q6H IV Last administered on 11/23/17at 13:28 ; Start 11/17/17 at 02:00; Stop 11/23/17 at 16:29; Status DC Miscellaneous Information ALL NURSING DEPARTME... UNSCH PRN .XX SEE LABEL COMMENTS; Start 11/20/17 at 22:15; Stop 11/21/17 at 22:14; Status DC Morphine Sulfate (Morphine 1 Mg/ ml PRODUCTS MECHANICAL DESIGN ENGINEER) 30 mg UNSCH IV Last administered on at 17:45; Start 11/20/17 at 22:00 Morphine Sulfate (Morphine Inj) 2 mg Q3H PRN IV PUSH pain >5 Last administered on 11/20/17at 02:17; Start 11/16/17 at 20:15 Naloxone HCl (Narcan Inj) 0.4 mg UNSCH PRN IV PUSH RESPIRATORY RATE LESS THAN 10; Start 11/20/17 at 22:00 Ondansetron HCl (Zofran Inj) 4 mg Q6H PRN IVP NAUSEA OR VOMITING Last administered on 11/19/17at 00:09; Start 11/16/17 at 20:00 PRODUCTS MECHANICAL DESIGN ENGINEER Dosage Infused (Pha) 1 Q8HR .XX Last administered on 11/23/17at 22:00; Start 11/20/17 at 22:00 Povidone Iodine (Betadine 5% Antisepsis Kit) 1 applic CLAY DRY PRESS OPERATOR PRN EACH NARE SEE LABEL COMMENTS; Start 11/24/17 at 03:30; Stop 11/27/17 at 03:29 Sodium Biphosphate/ Sodium Phosphate (Fleets Enema (Adult)) 133 ml ONCE ONCE RECTAL Last administered on 11/17/17at 23:03; Start 11/17/17 at 20:00; Stop at 20:01; Status DC Sodium Chloride 1,000 ml @ 100 mls/hr Q10H IV ; Start 11/24/17 at 09:15 Sodium Chloride (NS Flush) 2 ml BID IV FLUSH Last administered on 11/23/17at 21: 08; Start 11/16/17 at 21:00 A/P Problem List: (1) Partial intestinal obstruction ICD Code: K56.600 - Partial intestinal obstruction, unspecified as to cause Status: Acute (2) Mass of colon ICD Code: K63.9 - Disease of intestine, unspecified Status: Acute (3) Diverticulitis large intestine ICD Code: K57.32 - Diverticulitis of large intestine without perforation or abscess without bleeding Status: Acute Assessment and Plan A/P Partial intestinal obstruction colon cancer Radiology noted a colonic stricture associated with a mass in soft tissue swelling in the colon s/p colonoscopy and Exploratory laparotomy, sigmoid colon resection/End colostomy with Conroy's pouch and Partial omentectomy pathology with well-differentiated adenocarcinoma. for port placement today. management per general surgery. oncology evaluation; inpatient vs outpatient. DVT prophylaxis with subq Lovenox. Discharge Planning possible tomorrow- when cleared by general surgery. Problem Qualifiers (1) Partial intestinal obstruction: Qualified Codes: K56.690 - Other partial intestinal obstruction (2) Diverticulitis large intestine: Qualified Codes: K57.33 - Diverticulitis of large intestine without perforation or abscess with bleeding Salvatore Romo MD Nov 24, 2017 09:58
[2017-11-24] MEDS: guaiFENesin E.R. 600 MG TAB PO SCH ×2 (10:10→20:37)
[2017-11-24] MEDS: FAMOTIDINE 20 MG/2 ML VIAL IV PUSH SCH ×2 (10:10→20:37)
[2017-11-24] MEDS: SODIUM CHLOR 0.9% 1000 ML INJ 1,000 ML IV SCH ×2 (10:11→19:15)
[2017-11-24] MEDS: SODIUM CHLORIDE 0.9% FLUSH 10 ML FLUSH IV FLUSH SCH ×2 (10:11→23:33)
--- NOTE | 2017-11-24 10:42 | PD.WCN.NOT ---
Wound Consult Description: Consult for NEW OSTOMY TEACHING per Dr Garrison Communicated with: Patient RUBIN Morse Sophie, RN Recommendation: Reference the educational booklet left at bedside for reinforcement of teaching. Empty pouch of effluent when 1/3-1/2 full. Change pouching system every 5-7 days and PRN for leaks. Chew food well (when given a diet). Stay hydrated currently with IV fluids with NPO status pre port placement. Additional Information: Patient seen on [address] [place] [address] for ostomy assessment, teaching, and pouching system change. Ostomy Type: Colostomy Surgeon: Bruno Garrison MD Date of Surgery: Nov 20, 2017 Complete: Starter kit (Sent out Monday via 2 day air mail to arrive today ), Education materials (available at bedside), Rx (left on chart for use once sutures have dissolved), Other (8 appliances, 8 nyla seals, stoma paste, stoma powder, Cavilon skin prep, and adhesive remover in patient room to take home at discharge.) Educated patient on: Removing ostomy appliance with adhesive remover to avoid irritating peristomal skin. Cleansing around stoma with water and patting dry. Shaving with electric razor. Skin prepping peristomal skin and allowing to dry thoroughly. Encrusting for any open skin issues (sprinkle powder, wipe, spray with Cavilon). Cut one piece appliance and use stoma paste around stoma if needed. Apply clip to bottom of pouch. Remove paper backing from pouching system and place around stoma. Hold hand over wafer to warm and activate polymers for better adhesion. Additional information Patient seen on [address] [place] [address] for ostomy assessment, teaching, and pouching system change. Patient requested that we linotype worker front of mirror for visualization of changing the appliance. Patient and senior technical writer began removing the one piece appliance with adhesive remover. Once appliance was removed and patient was able to visualize stoma, while standing, patient stated that he was lightheaded. Patient was assisted to the commode to sit down. Patient stated that he felt as though he was going to black out. It was explained to him that this is a normal response to seeing the stoma for the first time and that he needed to breathe slowly and only concentrate on his breathing. Within 2-3 minutes the symptoms passed and patient was able to assist in the cleansing of peristomal skin, and application of the once piece pouching system. ADRIANE Barrios entered room when patient was still sitting on the commode and made aware of the events that took place. It was explained to the patient that senior technical writer would be back after his port placement to check on him prior to the weekend and possible discharge. At that time we would go over all his questions and senior technical writer would reinforce teaching of stoma etc. Stoma is now below the surrounding abdomen and functioning well with soft brown stool noted continuously throughout assessment and appliance change today. Mucocutaneous junction and sutures were not visualized at this time. Hyperplasia with scant bleeding was noted at the previous mucocutaneous junction site when cleansed, and communicated with RUBIN Morse. [facility] Murillo [facility] Nov 24, 2017 10:42
--- NOTE | 2017-11-24 11:23 | PD.CONS ---
History of Present Illness Service Hematology/oncology Consult Requested By Gen. surgery service. Reason for Consult New diagnosis of metastatic adenocarcinoma of the colon. Pathologic stage: pT3, pN2b, pM1 (stage IV) disease. Treatment history: 1. 11/20/2017: Patient underwent open laparotomy with sigmoid colon resection, mesenteric lymphadenectomy, resection of omental based metastases and colostomy creation. Primary Care Physician [facility] Diagnoses: (1) Omental metastasis (2) Adenocarcinoma of sigmoid colon History of Present Illness Chief Complaint: Four-month history of on and off constipation. Occasional hematochezia for the past 2 months area Unintended weight loss of 25 pounds over the past 3 weeks. Left lower quadrant abdominal pain. History of present illness: Mr. Ordoñez is a very pleasant 52-year-old man, he is single, he lives at home alone in the [place] area. 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 Patient reports being in his usual good state of health up until June 2018, he at that time noticed sudden onset constipation which lasted 7 days, he was unable to get relief regardless of [id number] laxatives and other home remedies. He reported these symptoms to his CT physicians who recommended additional laxatives. Between June 2017 and October 2017 the patient noted on and off blood in his stools and left lower abdominal pain which was intermittent. On 10/29/2017 he developed sudden worsening left lower quadrant abdominal pain associated with loss of appetite and constipation. He was hospitalized at [facility] and underwent imaging studies the abdomen, he was assessed to have diverticulitis and was recommended antibiotics and outpatient follow-up for a colonoscopy. While awaiting the outpatient colonoscopy his symptoms recurred and he presented to [facility] for further workup and evaluation on 11/16/2017. Imaging studies of the abdomen and pelvis are performed and the patient was noted to have a masslike entity involving the sigmoid colon associated with colonic obstruction additionally metastatic deposits were identified in the omentum/soft tissues adjacent to the sigmoid colon. The patient underwent endoscopy and colonoscopy early in his hospitalization and was noted to have an obstructing lesion in the sigmoid colon, biopsies were performed and so there was no evidence of malignancy on the specimens there was a high-grade suspicion for likely underlying malignancy. The patient subsequently evaluated by Gen. surgery and 11/20/2017 he underwent laparotomy with sigmoid colon resection, mesenteric lymphadenectomy and resection of omental based metastases. Final pathology revealed an invasive well-differentiated adenocarcinoma with extensive mesenteric lymph node involvement and also biopsy-proven omental metastases. Our operating surgeon reports having resected all visible tumor deposits. Despite this this patient has pathologic confirmation of stage IV disease. Preoperative CT abdomen and pelvis reveals no evidence of metastatic disease to the liver. I have been asked to see the patient to discuss further workup and management. Review of Systems Constitutional: COMPLAINS OF: Fatigue, Weight loss (25 pound, unintended), Dizziness, Change in appetite (decreased appetite), DENIES: Diaphoretic episodes , Fever, Weight gain, Chills, Night Sweats Endocrine: DENIES: Heat/cold intolerance, Polydipsia, Polyuria, Polyphagia Eyes: DENIES: Blurred vision, Diplopia, Eye inflammation, Eye pain, Vision loss , Photosensitivity, Double Vision Ears, nose, mouth, throat: DENIES: Tinnitus, Hearing loss, Vertigo, Nasal discharge, Oral lesions, Throat pain, Hoarseness, Ear Pain, Running Nose, Epistaxis, Sinus Pain, Toothache, Odynophagia Respiratory: DENIES: Apneas, Cough, Snoring, Wheezing, Hemoptysis, Sputum production, Shortness of breath Cardiovascular: DENIES: Chest pain, Palpitations, Syncope, Dyspnea on Exertion , PND, Lower Extremity Edema, Orthopnea, Claudication Gastrointestinal: COMPLAINS OF: Abdominal pain, Bloody stools, Constipation, Nausea, Vomiting, Anorexia, DENIES: Black stools, Diarrhea, Difficulty Swallowing Genitourinary: DENIES: Sexual dysfunction, Urinary frequency, Urinary incontinence, Urgency, Hematuria, Dysuria, Nocturia, Penile Discharge, Testicular Pain, Testicular Swelling Musculoskeletal: COMPLAINS OF: Back pain (chronic lower back pain secondary to DJD), DENIES: Joint pain, Muscle aches, Stiffness, Joint Swelling, Neck pain Integumentary: DENIES: Abnormal pigmentation, Nail changes, Pruritus, Rash Hematologic/lymphatic: DENIES: Bruising, Lymphadenopathy Immunologic/allergic: DENIES: Eczema, Urticaria Neurologic: DENIES: Abnormal gait, Headache, Localized weakness, Paresthesias, Seizures, Speech Problems, Tremor, Poor Balance Psychiatric: DENIES: Anxiety, Confusion, Mood changes, Depression, Hallucinations, Agitation, Suicidal Ideation, Homicidal Ideation, Delusions Except as stated in HPI: all other systems reviewed are Neg Past Family Social History Allergies: Coded Allergies: No Known Allergies (Unverified , 11/16/17) Past Medical History Patient reports history of DJD involving the lower back. No other chronic medical comorbid conditions reported. Past Surgical History Left inguinal hernia repair 2 Active Ordered Medications Current inpatient medications: Ringer's lactate 30 mils per hour Hydrocodone/acetaminophen 5/325 mg one tablet every 4 hours for pain Lovenox 40 mg subcutaneous every 24 hours Famotidine 20 g IV every 12 hours Mucinex 600 mg by mouth twice a day Ativan 1 mg IV every 6 hours Naloxone 0.4 mg IV push as needed for oversedation. Zofran for more grams IV every 6 hours if nausea and vomiting Family History Mother and father both living, mother has Alzheimer's, father is is in generally good health. Patient denies knowledge of oncologic diagnoses particularly GI malignancies in his extended family such as grandparents, uncles, Aunts and cousins. Social History Patient is single, he's never been , he has no children of his own. Currently works for [employer]. He is a of the [employer] having served on a [employer] for many years. Reports being a lifelong nonsmoker. He reports occasional alcohol consumption. He denies illicit drug use. Physical Exam Vital Signs Vital Signs Date Time Temp Pulse Resp B/P (MAP) Pulse Ox O2 Delivery O2 Flow Rate FiO2 11/24/17 00:00 98.2 72 20 118/73 (88) 96 11/23/17 22:00 18 11/23/17 21:04 18 11/23/17 20:00 97.4 86 20 134/77 (96) 97 11/23/17 16:00 98.1 80 16 134/88 (103) 97 11/23/17 12:00 98.2 70 18 150/96 (114) 97 Physical Exam GENERAL: Mr. Ordoñez is a young male, he is tall and of moderate build, he appears to be no acute distress is a pleasant disposition. SKIN: No rashes, ecchymoses or lesions. Cool and dry. HEAD: Atraumatic. Normocephalic. No temporal or scalp tenderness. EYES: Pupils equal round and reactive. Extraocular motions intact. No scleral icterus. No injection or drainage. ENT: Nose without bleeding, purulent drainage or septal hematoma. Throat without erythema, tonsillar hypertrophy or exudate. Uvula midline. Airway patent. NECK: Trachea midline. No JVD or lymphadenopathy. Supple, nontender, no meningeal signs. CARDIOVASCULAR: Regular rate and rhythm without murmurs, gallops, or rubs. RESPIRATORY: Clear to auscultation. Breath sounds equal bilaterally. No wheezes , rales, or rhonchi. GASTROINTESTINAL: Surgical dressing noted on the ventral laparotomy incision, colostomy bag is noted in the left lower quadrant. Abdomen is otherwise soft and nontender. MUSCULOSKELETAL: Extremities without clubbing, cyanosis, or edema. No joint tenderness, effusion, or edema noted. No calf tenderness. Negative Homans sign bilaterally. NEUROLOGICAL: Awake and alert. Cranial nerves II through XII intact. Motor and sensory grossly within normal limits. Five out of 5 muscle strength in all muscle groups. Normal speech. Laboratory Pathology: Procedure dated 11/20/2017: Specimen: Sigmoid colon. Soft tissue nodules in the adjacent omentum. Tumor summary: Tumor size: 4 x 3.5 x 1.3 cm. Macroscopic tumor perforation: Not identified. Histologic type: Adenocarcinoma. Histologic grade: G1 (well-differentiated). Tumor extension: Tumor invades through the muscularis propria into the pericolonic tissue. Specimen margins: Proximal margin: Uninvolved by invasive carcinoma. Distal margin: Uninvolved by invasive carcinoma. Radial margin: Uninvolved by invasive carcinoma. Treatment affect: No known presurgical therapy. Lymphovascular invasion: Present. Perineural invasion: Present. Tumor deposits: Resident; number of discontinuous tumor deposits: 5 Regional lymph nodes: Number of lymph nodes involved: 11 Number of lymph nodes examined: 13 Pathologic classification (AJCC 8th addition): pT3 pN2b, M1 Result Diagram: 11/22/17 1133 11/22/[address] scan of abdomen and pelvis with IV contrast dated 11/16/2017: Conclusion: 1. Distal left colonic stricture which is associated with a colonic mass and adjacent soft tissue nodules. Primary differential diagnosis of colonic malignancy. Cannot exclude, acute diverticulitis. There is dilation of the colon proximal to the obstruction. Small bowel is also mildly dilated. Soft tissue nodules adjacent to the sigmoid colon measuring up to 2.6 cm. Assessment and Plan Assessment and Plan Mr. Ordoñez is a 52-year-old man with a new diagnosis of a metastatic sigmoid colon adenocarcinoma (well-differentiated). He presented to the hospital with complaints of left lower abdominal quadrant pain, constipation, weight loss, anorexia and intermittent hematochezia. Imaging studies which included CT scan of abdomen and pelvis indicated soft tissue deposits within the omentum adjacent to the sigmoid colon. The patient underwent surgical resection on 11/20 and the pathologic findings are summarized above. He is scheduled to undergo an infusion port placement later today. Full systemic staging; including a CT scan of the chest will be ordered to rule out pulmonary/medial cell metastases. Preop CEA levels 5.3 which is minimally elevated. I did talk to the patient today in detail about his diagnosis, stage as well as systemic therapeutic options available. I cling to the patient that he is a candidate for palliative systemic chemotherapy along with a biologic agent. He is not certain whether his treatment will be delivered locally by us or to the CT in [facility]. Plan: 1. Metastatic adenocarcinoma of the sigmoid colon: I will request K CARMEN and NRAS mutation analysis. Microsatellite instability testing will also be helpful to document but I will defer this testing at the present time. CT of the chest will be ordered with IV contrast to assess for pulmonary nodules or mediastinal lymph nodes. Infusion port placement later today. I will forward his demographics to my new patient referral office with the patient to be either scheduled with myself or with the [facility] in [place]. Discussed Condition With Patient Bedside nurse Surgical team Narendra Hodgson MD Nov 24, 2017 11:23
[2017-11-24 12:00] VITALS: BP 142/93; PULSE 74; RESP 16; TEMP 98.4; O2SAT 97
[2017-11-24] MEDS ORDERED: LIDOCAINE HCL 1% PF 5 ML SYRINGE OTHER ONE (12:00)
[2017-11-24] MEDS ORDERED: PHENYLEPH/NS 1000 MCG/10 ML SYR IV ONE (12:00)
[2017-11-24] MEDS ORDERED: PROPOFOL 200 MG/20 ML AMP IV ONE (12:00)
[2017-11-24] MEDS ORDERED: NORC5TAB PO (12:21)
--- NOTE | 2017-11-24 13:40 | HHI.PR ---
Subjective Subjective Notes Resting in bed No issues overnight Ready for Port placement today Objective Vitals/I&O Vital Signs Date Time Temp Pulse Resp B/P (MAP) Pulse Ox O2 Delivery O2 Flow Rate FiO2 11/24/17 12:00 98.4 74 16 142/93 (109) 97 11/20/17 23:00 Nasal Cannula 2 Radiology Last 48 hours Impressions Abdomen/Pelvis CT 11/16/17 1707 Signed Impressions: Service Date/Time: October 18:51 - CONCLUSION: 1. Distal left colonic stricture which is associated with a colonic mass and adjacent soft tissue nodules are as measured above. Primary differential diagnosis is a colonic malignancy. Cannot exclude a complicated diverticulitis. There is dilatation of the colon proximal to the obstruction. Small bowel also mildly dilated. Rick Hercules MD Cardiovascular: Regular Lungs: Clear Abdomen: Other (FREEMAN in place with good seal; colostomy-- with stool; stoma below skin level) Extremities: No edema A/P Assessment and Plan 52 year old male POD4 Exploratory laparotomy, sigmoid colon resection; End colostomy with Conroy's pouch; Partial omentectomy -NPO for port; regular diet after -Obtain consent for port -OOB and mobilize -Lovenox -IS -Pathology --- shows adenocarcinoma with metastatic disease to omentum and lymph nodes -Consult to Medical Oncology--- Dr. Hodgson saw patient tday -RN Yola following for continues Ostomy teaching -Likely home tomorrow; [facility] arranged; Pain rx on chart -Follow up with Dr. Garrison November 30 at 11:45AM Attending Note - Dr. Garrison Stable; wound clean. Colostomy functioning well. For [id number] today Home tomorrow if all goes well today. The exam, history, and the medical decision-making described in the above note were completed with the assistance of the mid-level provider. I reviewed and agree with the findings presented. I attest that I had a [id number] encounter with the patient on the same day, and personally performed and documented my assessment and findings in the medical record. Maritza Morse/First Catherine CONKLIN Nov 24, 2017 13:40 Bruno Garrison MD Nov 28, 2017 17:12
[2017-11-24] MEDS ORDERED: HEPARIN SODIUM - IV 10,000 UNITS/10 ML VIAL ONE (13:45)
[2017-11-24] MEDS ORDERED: SODIUM CHLORIDE 0.9% 20 ML VIAL ONE (13:45)
[2017-11-24] MEDS ORDERED: ceFAZolin INJ 1,000 MG VIAL ONE (14:11)
[2017-11-24] MEDS ORDERED: LIDOCAINE 1%/EPINEPHrine 1:100,000 SOLN 50 ML VIAL ONE (14:11)
[2017-11-24] MEDS ORDERED: VANCOMYCIN HCL 1000 MG VIAL ONE (14:11)
[2017-11-24] MEDS ORDERED: MIDAZOLAM HCL 2 MG/2 ML VIAL ONE (15:06)
[2017-11-24] MEDS ORDERED: DO NOT ADM ANY ANTICOAGULANT DRUGS PRN (15:20)
--- NOTE | 2017-11-24 15:43 | HHI.PR ---
cc: Bruno Garrison MD Immediate Post Op Note Procedure Date: Nov 24, 2017 Pre Op Diagnosis: Metastatic adenocarcinoma colon with need for IV chemotherapy Post Op Diagnosis: Same Surgeon: Bruno Garrison Traffic Representative(s): None Procedure: [id number] placement with intraop use of fluoro Complications: None Specimen(s) removed: None Estimated blood loss: 10 ml Anesthesia: LMA Drains: None IVF (250 ml) Patient to: PACU Patient Condition: Good Date/Time of Procedure: SEE SURGICAL CARE RECORD Bruno Garrison MD Nov 24, 2017 15:43
--- NOTE | 2017-11-24 16:13 | RADRPT ---
EXAM DATE/TIME: 11/24/2017 15:45 [facility] COMPARISON: No previous studies available for comparison. INDICATIONS : Status post infusaport placement. Evaluate for pneumothorax. MEDICAL HISTORY : None. SURGICAL HISTORY : None. ENCOUNTER: Initial ACUITY: 1 day PAIN SCORE: Non-responsive. LOCATION: chest FINDINGS: A single view of the chest demonstrates the lungs to be symmetrically aerated without evidence of mas s, infiltrate or effusion. Atelectasis is present at the right lung base. The cardiomediastinal conto urs are unremarkable. Osseous structures are intact. A left subclavian implantable port catheter is in place with no pneumothorax. There are overlying electrocardiogram leads. CONCLUSION: 1. Interval placement of left subclavian central venous line with no pneumothorax. 2. Atelectasis in the right lung base. Bruno Condon MD on November 24, 2017 at 16:10 Board Certified Radiologist. This report was verified electronically.
--- NOTE | 2017-11-24 16:20 | MP ---
cc: Bruno Garrison MD DATE OF OPERATION: 11/24/2017 PROCEDURE PERFORMED: Infusaport placement with intraoperative use of fluoroscopy. PREOPERATIVE DIAGNOSIS: Metastatic colon cancer with need for intravenous chemotherapy. POSTOPERATIVE DIAGNOSIS: Metastatic colon cancer with need for intravenous chemotherapy. ANESTHESIA: LMA. SURGEON: Bruno Garrison MD ESTIMATED BLOOD LOSS: 10 mL FLUIDS: 250 mL crystalloid. COMPLICATIONS: None. DRAINS: None. SPECIMENS: None. PROCEDURE IN DETAIL: The patient was taken to the operating room, and placed on the operating table in the supine position. After an adequate level of laryngeal mask anesthesia was achieved, the neck and chest were prepped and draped bilaterally. Timeout was taken confirming the correct patient, site, and procedure to be performed. The patient had local anesthetic injected into the left subclavian region. He was placed in Trendelenburg position. An 18-gauge needle was passed into the subclavian vein on the first attempt. A guidewire was passed and the needle withdrawn. The guidewire was seen to be in the superior vena cava under fluoroscopy. At this point, the pocket was infiltrated with local anesthetic and an incision was made inferior to the percutaneous puncture site. The pocket was created with electrocautery. When the pocket was large enough to fit the port, a catheter was brought through a short tunnel from the exit site of the wire to the pocket. An introducer and sheath were then passed over the guidewire and the guidewire and introducer were removed after being seen to course smoothly into the vena cava. The catheter was passed down the sheath and the sheath peeled away. The catheter was withdrawn to a level such that the tip was in the superior vena cava. The catheter was trimmed to length and the port attached to the catheter and the hub was snapped in place to secure the catheter. The port was placed into the pocket. The port was secured at 2 points with a 2-0 Prolene suture. With hemostasis assured, both the port pocket wound and the percutaneous puncture site were closed with interrupted buried 3-0 Vicryl suture. The skin was closed over the port pocket with 5-0 PDS in a running subcuticular fashion. Both sites were dressed with Steri-Strips. The patient was taken back to the recovery room in stable condition. A stat chest x-ray demonstrated no evidence of pneumothorax on first reading. He tolerated the procedure well. MD HATTIE Stokes/AB , 04:03 PM , 04:19 PM
[2017-11-24 17:09] LABS: INTERNATIONAL NORMALIZED RATIO 1.1 RATIO; PROTHROMBIN TIME - PATIENT 11.3 SEC (9.8-11.6)
[2017-11-24 20:00] VITALS: BP 132/77; PULSE 110; RESP 20; O2SAT 98
[2017-11-24] MEDS: ACETAMINOPHEN/HYDROcodone 325 MG/5 MG TAB PO PRN (20:45)
[2017-11-24] MEDS ORDERED: IOHEXOL 350 MG/ML 10 ML VIAL (for RAD DIAG) IVCONTRAST ONE (22:45)
--- NOTE | 2017-11-24 22:54 | RADRPT ---
EXAM DATE/TIME: 11/24/2017 22:38 [facility] COMPARISON: No previous studies available for comparison. INDICATIONS : Colon cancer. Evaluate metastatic disease. IV CONTRAST: 65 cc Omnipaque 350 (iohexol) IV RADIATION DOSE: 9.59 CTDIvol (mGy) MEDICAL HISTORY : Carcinoma, colon. SURGICAL HISTORY : None. ENCOUNTER: Initial ACUITY: 1 day PAIN SCALE: 0/10 LOCATION: chest TECHNIQUE: Volumetric scanning of the chest was performed. Using automated exposure control and adjustment of t he mA and/or kV according to patient size, radiation dose was kept as low as reasonably achievable to obtain optimal diagnostic quality images. DICOM format image data is available electronically for review and comparison. Follow-up recommendations for detected pulmonary nodules are based at a minimum on nodule size and pa tient risk factors according to Fleischner Society Guidelines. FINDINGS: LUNGS: There is linear increased density at the posterior lower lobes likely related to scarring or atelecta sis. No focal lung masses are seen. PLEURA: There is no pleural thickening or pleural effusion. MEDIASTINUM: The heart and great vessels demonstrate no acute abnormality. There is no mediastinal or hilar lymph adenopathy. AXILLAE: Within normal limits. No lymphadenopathy. SKELETAL: Within normal limits for patient age. MISCELLANEOUS: The visualized upper abdominal organs demonstrate no acute abnormality. There is a left-sided Infuse- a-Port in place. CONCLUSION: 1. No evidence of metastatic disease. 2. Mild linear atelectasis or scarring at the lung bases. Michael Hudson MD on November 24, 2017 at 22:48 Board Certified Radiologist. This report was verified electronically.
[2017-11-25] MEDS: SODIUM CHLOR 0.9% 1000 ML INJ 1,000 ML IV SCH (05:15)
[2017-11-25] MEDS: PCA - TOTAL MG MORPHINE DELIVERED PER SHIFT SCH (05:32)
[2017-11-25 08:00] VITALS: BP 159/85; PULSE 74; RESP 17; TEMP 98.5; O2SAT 99
--- NOTE | 2017-11-25 10:02 | HHI.PR ---
Subjective Remarks in no acute distress. denies pain. no new complaints. hoping that he would go home today. Objective Vitals Vital Signs Date Time Temp Pulse Resp B/P (MAP) Pulse Ox O2 Delivery O2 Flow Rate FiO2 11/25/17 08:00 98.5 74 17 159/85 (109) 99 11/24/17 20:00 110 20 132/77 (95) 98 11/24/17 16:10 75 16 137/75 (95) 100 Room Air 11/24/17 16:00 74 16 132/78 (96) 100 Room Air 11/24/17 15:45 74 16 146/70 (95) 100 Room Air 11/24/17 15:30 72 16 115/62 (79) 100 Nasal Cannula 3 11/24/17 15:19 98.1 72 16 92/53 (66) 98 Nasal Cannula 3 11/24/17 12:00 98.4 74 16 142/93 (109) 97 I/O 11/24/17 11/24/17 11/24/17 11/25/17 11/25/17 11/25/17 07:00 15:00 23:00 07:00 15:00 23:00 Intake Total 0 ml 852 ml 480 ml Output Total 0 ml 850 ml 210 ml Balance 0 ml -850 ml 642 ml 480 ml Intake Oral 0 ml 0 ml 480 ml IV Total 852 ml Output Urine Total 0 ml 550 ml Stool Total 300 ml 200 ml Estimated Blood Loss 10 ml # Voids 2 2 2 # Bowel Movements 1 0 Result Diagram: 11/22/17 1133 11/22/17 1133 Imaging Last Impressions Chest X-Ray 11/24/17 0000 Signed Impressions: Service Date/Time: Friday, November 24, 2017 15:45 - CONCLUSION: 1. Interval placement of left subclavian central venous line with no pneumothorax. 2. Atelectasis in the right lung base. Bruno Condon MD Chest CT 11/24/17 0000 Signed Impressions: Service Date/Time: Friday, November 24, 2017 22:38 - CONCLUSION: 1. No evidence of metastatic disease. 2. Mild linear atelectasis or scarring at the lung bases. Michael Hudson MD Abdomen/Pelvis CT 11/16/17 1707 Signed Impressions: Service Date/Time: October 18:51 - CONCLUSION: 1. Distal left colonic stricture which is associated with a colonic mass and adjacent soft tissue nodules are as measured above. Primary differential diagnosis is a colonic malignancy. Cannot exclude a complicated diverticulitis. There is dilatation of the colon proximal to the obstruction. Small bowel also mildly dilated. Rick Hercules MD Objective Remarks GENERAL: This is a well-nourished, well-developed patient, in no apparent distress. CARDIOVASCULAR: Regular rate and regular rhythm without murmurs, gallops, or rubs. RESPIRATORY: Clear to auscultation. Breath sounds equal bilaterally. No wheezes , rales, or rhonchi. GASTROINTESTINAL: colostomy in place. MUSCULOSKELETAL: Extremities without clubbing, cyanosis, or edema. NEURO: Alert & Oriented x4 to person, place, time, situation. Moves all ext x4 Procedures colonoscopy/ Exploratory laparotomy, sigmoid colon resection/ End colostomy with Conroy's pouch/ Partial omentectomy/ port placement. Medications and IVs Inpatient Medications Acetaminophen/ Hydrocodone Bitart (Leopold 5-325 Mg) 2 tab Q4H PRN PO pain 6-10 ; Start 11/23/17 at 12:15 Chlorhexidine Gluconate (Chlorhexidine 2% Cloth) 3 pack REFRIGERATOR MOVER PRN TOPICAL SEE LABEL COMMENTS; Start 11/24/17 at 03:30; Stop 11/27/17 at 03:29 Ciprofloxacin/ Dextrose 200 ml @ 200 mls/hr Q12H IV Last administered on at 08:45; Start 11/17/17 at 08:00; Stop 11/23/17 at 16:29; Status DC Enoxaparin Sodium (Lovenox Inj) 40 mg Q24H SQ Last administered on 11/23/17at 21 :08; Start 11/21/17 at 21:00; Status Future Hold Famotidine (Pepcid Inj) 20 mg Q12H IV PUSH Last administered on 11/24/17at 20:37 ; Start 11/20/17 at 22:00 Guaifenesin (Mucinex Er) 600 mg BID PO Last administered on 11/24/17at 20:37; Start 11/22/17 at 21:00 Insulin Human Regular (NovoLIN R INJ) See Protocol Table ... REFRIGERATOR MOVER PRN SQ SEE PROTOCOL TABLE; Start 3/25/18 at 18:15; Stop 11/22/17 at 18:14; Status DC Lactated Ringer's 1,000 ml @ 30 mls/hr Q24H PRN IV SEE LABEL COMMENTS; Start at 03:30; Stop 11/27/17 at 03:29 Lorazepam (Ativan Inj) 1 mg Q6H PRN IV PUSH insomnia or anxiety; Start at 18:00 Magnesium Citrate (Citroma Liq) 300 ml ONCE ONCE PO Last administered on at 23:05; Start 11/17/17 at 23:00; Stop 11/17/17 at 23:01; Status DC Metoprolol Tartrate (Lopressor) 25 mg REFRIGERATOR MOVER PRN PO SEE LABEL COMMENTS; Start 11/19/17 at 18:15; Stop 11/22/17 at 18:14; Status DC Metronidazole 100 ml @ 100 mls/hr Q6H IV Last administered on 11/23/17at 13:28 ; Start 11/17/17 at 02:00; Stop 11/23/17 at 16:29; Status DC Miscellaneous Information ALL NURSING DEPARTME... UNSCH PRN .XX SEE LABEL COMMENTS; Start 11/24/17 at 15:20; Stop 11/25/17 at 15:19 Morphine Sulfate (Morphine 1 Mg/ ml SUPERINTENDENT HORTICULTURE) 30 mg UNSCH IV Last administered on at 17:45; Start 11/20/17 at 22:00 Morphine Sulfate (Morphine Inj) 2 mg Q3H PRN IV PUSH pain >5 Last administered on 11/20/17at 02:17; Start 11/16/17 at 20:15 Naloxone HCl (Narcan Inj) 0.4 mg UNSCH PRN IV PUSH RESPIRATORY RATE LESS THAN 10; Start 11/20/17 at 22:00 Ondansetron HCl (Zofran Inj) 4 mg Q6H PRN IVP NAUSEA OR VOMITING Last administered on 11/19/17at 00:09; Start 11/16/17 at 20:00 SUPERINTENDENT HORTICULTURE Dosage Infused (Pha) 1 Q8HR .XX Last administered on 11/23/17at 22:00; Start 11/20/17 at 22:00 Povidone Iodine (Betadine 5% Antisepsis Kit) 1 applic REFRIGERATOR MOVER PRN EACH NARE SEE LABEL COMMENTS; Start 11/24/17 at 03:30; Stop 11/27/17 at 03:29 Sodium Biphosphate/ Sodium Phosphate (Fleets Enema (Adult)) 133 ml ONCE ONCE RECTAL Last administered on 11/17/17at 23:03; Start 11/17/17 at 20:00; Stop at 20:01; Status DC Sodium Chloride 1,000 ml @ 100 mls/hr Q10H IV Last administered on 11/24/17at 10:11; Start 11/24/17 at 09:15 Sodium Chloride (NS Flush) 2 ml BID IV FLUSH Last administered on 11/24/17at 23: 33; Start 11/16/17 at 21:00 A/P Problem List: (1) Partial intestinal obstruction ICD Code: K56.600 - Partial intestinal obstruction, unspecified as to cause Status: Acute (2) Mass of colon ICD Code: K63.9 - Disease of intestine, unspecified Status: Acute (3) Diverticulitis large intestine ICD Code: K57.32 - Diverticulitis of large intestine without perforation or abscess without bleeding Status: Acute Assessment and Plan A/P Partial intestinal obstruction colon cancer Radiology noted a colonic stricture associated with a mass in soft tissue swelling in the colon s/p colonoscopy and Exploratory laparotomy, sigmoid colon resection/End colostomy with Conroy's pouch and Partial omentectomy pathology with well-differentiated adenocarcinoma. s/p port placement. oncology consult appreciated. DVT prophylaxis with subq Lovenox. Discharge Planning dc home today-if cleared by surgery. see med list. f/u; pcp, surgery and oncology. d/w the patient. Problem Qualifiers (1) Partial intestinal obstruction: Qualified Codes: K56.690 - Other partial intestinal obstruction (2) Diverticulitis large intestine: Qualified Codes: K57.33 - Diverticulitis of large intestine without perforation or abscess with bleeding Salvatore Romo MD Nov 25, 2017 10:02
[2017-11-25] MEDS: FAMOTIDINE 20 MG/2 ML VIAL IV PUSH SCH (10:05)
[2017-11-25] MEDS: guaiFENesin E.R. 600 MG TAB PO SCH (10:05)
--- NOTE | 2017-11-25 10:05 | HHI.DS ---
Discharge Summary Admission Date Nov 16, 2017 at 19:56 Discharge Date: Nov 25, 2017 Admitting Diagnosis partial bowel obstruction, mass vs complicated diverticulitis (1) Partial intestinal obstruction ICD Code: K56.600 - Partial intestinal obstruction, unspecified as to cause Diagnosis: Principal Status: Acute (2) Mass of colon ICD Code: K63.9 - Disease of intestine, unspecified Diagnosis: Principal Status: Acute Procedures colonoscopy/ Exploratory laparotomy, sigmoid colon resection/ End colostomy with Conroy's pouch/ Partial omentectomy/ port placement. Brief History - From Admission Mr. Ordoñez is a pleasant 52-year-old male with a history of degenerative disc disease and recent hospitalization for diverticulitis at the [facility] in [place] who presented to the ER on 11/16/2017 for evaluation of progressively worsening abdominal pain, distention, and hematochezia. Abdomen/pelvis CT scan in the emergency room shows distal left colonic stricture associated with colonic mass with adjacent soft tissue nodules and dilation of the colon proximal to the obstruction along with small bowel mild distention. The patient is seen in the emergency room. He states that on 10/29/2018, he went to the [facility] in [place] for abdominal pain and was admitted for 4 days after being diagnosed with diverticulitis with microperforation. He states that there was some discussion about possibly doing surgery but this was never done and he is not exactly sure why. He ran a fever on the date of admission 10/29 of 102.4 but has been afebrile since. For the past 2-3 days, he has been noting abdominal bloating which has progressively worsened and became extremely painful by Monday. He also noted hematochezia. On Monday he had dry heaves once denies any nausea or vomiting and has had no further episodes of dry heaves. He does report weight loss of 20-25 pounds in the last 3 weeks. He has some scant records available for review from the [facility] which show that he was taking amoxicillin and oxycodone 5 upon discharge from the hospital. No imaging records were available for review. He denies any chest pain or shortness of breath. CBC/BMP: 3/28/18 1133 11/22/17 1133 Significant Findings Laboratory Tests Test 11/22/17 11:33 11/24/17 16:25 Red Blood Count 3.86 MIL/MM3 (4.50-5.90) Hemoglobin 11.2 GM/DL (13.0-17.0) Hematocrit 33.2 % (39.0-51.0) Neutrophils (%) (Auto) 74.9 % (16.0-70.0) Calcium Level 8.1 MG/DL (8.5-10.1) Imaging Last Impressions Chest X-Ray 11/24/17 0000 Signed Impressions: Service Date/Time: Friday, November 24, 2017 15:45 - CONCLUSION: 1. Interval placement of left subclavian central venous line with no pneumothorax. 2. Atelectasis in the right lung base. Bruno Conodn MD Chest CT 11/24/17 0000 Signed Impressions: Service Date/Time: Friday, November 24, 2017 22:38 - CONCLUSION: 1. No evidence of metastatic disease. 2. Mild linear atelectasis or scarring at the lung bases. Michael Hudson MD Abdomen/Pelvis CT 11/16/17 1707 Signed Impressions: Service Date/Time: October 18:51 - CONCLUSION: 1. Distal left colonic stricture which is associated with a colonic mass and adjacent soft tissue nodules are as measured above. Primary differential diagnosis is a colonic malignancy. Cannot exclude a complicated diverticulitis. There is dilatation of the colon proximal to the obstruction. Small bowel also mildly dilated. Rick Hercules MD PE at Discharge GENERAL: This is a well-nourished, well-developed patient, in no apparent distress. CARDIOVASCULAR: Regular rate and regular rhythm without murmurs, gallops, or rubs. RESPIRATORY: Clear to auscultation. Breath sounds equal bilaterally. No wheezes , rales, or rhonchi. GASTROINTESTINAL: colostomy in place. MUSCULOSKELETAL: Extremities without clubbing, cyanosis, or edema. NEURO: Alert & Oriented x4 to person, place, time, situation. Moves all ext x4 Hospital Course Partial intestinal obstruction colon cancer Radiology noted a colonic stricture associated with a mass in soft tissue swelling in the colon s/p colonoscopy and Exploratory laparotomy, sigmoid colon resection/End colostomy with Conroy's pouch and Partial omentectomy pathology with well-differentiated adenocarcinoma. s/p port placement. oncology consult appreciated. Pt Condition on Discharge: Good Discharge Disposition: Disch w/ Home Health Serv Discharge Time: <= 30 minutes Discharge Instructions DIET: Follow Instructions for: As Tolerated, No Restrictions Activities you can perform: Regular-No Restrictions Salvatore Romo MD Nov 25, 2017 10:05
--- NOTE | 2017-11-25 11:37 | HHI.PR ---
Subjective Subjective Notes Patient is feeling well. He is eating diet without problems. His colostomy is functioning. He has been up to the bathroom. His pain is well controlled. He is desirous of discharge. Objective Vitals/I&O Vital Signs Date Time Temp Pulse Resp B/P (MAP) Pulse Ox O2 Delivery O2 Flow Rate FiO2 11/25/17 08:00 98.5 74 17 159/85 (109) 99 11/24/17 16:10 Room Air 11/24/17 15:30 3 Labs Laboratory Tests Test 11/24/17 16:25 Prothrombin Time 11.3 Prothromb Time International Ratio 1.1 Radiology Last 48 hours Impressions Abdomen/Pelvis CT 11/16/17 1707 Signed Impressions: Service Date/Time: October 18:51 - CONCLUSION: 1. Distal left colonic stricture which is associated with a colonic mass and adjacent soft tissue nodules are as measured above. Primary differential diagnosis is a colonic malignancy. Cannot exclude a complicated diverticulitis. There is dilatation of the colon proximal to the obstruction. Small bowel also mildly dilated. Rick Hercules MD Abdomen: Non-distended, Non-tender, Other (Dressing dry and intact PIC O. Left lower quadrant ostomy functioning well pink and well perfused. Extremities nonedematous.) A/P Assessment and Plan Postop colon resection with colostomy and Conroy's pouch for obstructing adenocarcinoma of the colon. Patient has had an [id number] placed. Patient has a follow-up appointment with Dr. Garrison on . Pain medication prescription is already in the chart. Home health care is already been arranged. Elias Fernandez MD Nov 25, 2017 11:37
--- NOTE | 2017-11-25 12:27 | HHI.FF ---
Face to Face Verification Diagnosis: (1) Adenocarcinoma of sigmoid colon Home Health Nursing Order: Signs/symptoms of disease process Wound care and dressing changes Instructions: New colostomy ---continued care and teaching I have seen patient Sonny Ordoñez on 11/25/17. My clinical findings support the need for the requested home health care services because: Ltd mobility - disease progression I certify that my clinical findings support that this patient is homebound because: Post-op weakness Salvatore Romo MD Nov 25, 2017 12:27
== END 2017-11-25 14:26 | disposition home health service (06) | DRG 330 ==
LOC: NEPE 16:34 → NEDA 19:56 → N05A 21:47 → N07B 11-20 21:58
PROVIDERS: ADMIT Internal Medicine; ATTEND Internal Medicine
PROC: 0DBN8ZX Excision of Sigmoid Colon, Via Natural or Artificial Opening Endoscopic, Diagnostic (ICD-10-PCS; 2017-11-18)
PROC: 0DB98ZX Excision of Duodenum, Via Natural or Artificial Opening Endoscopic, Diagnostic (ICD-10-PCS; 2017-11-18)
PROC: 0DB78ZX Excision of Stomach, Pylorus, Via Natural or Artificial Opening Endoscopic, Diagnostic (ICD-10-PCS; 2017-11-18)
PROC: 0DB38ZX Excision of Lower Esophagus, Via Natural or Artificial Opening Endoscopic, Diagnostic (ICD-10-PCS; 2017-11-18)
PROC: 07BC0ZX Excision of Pelvis Lymphatic, Open Approach, Diagnostic (ICD-10-PCS; 2017-11-20)
PROC: 0DBU0ZZ Excision of Omentum, Open Approach (ICD-10-PCS; 2017-11-20)
PROC: 0DTN0ZZ Resection of Sigmoid Colon, Open Approach (ICD-10-PCS; principal; 2017-11-20 19:06)
PROC: 0D1M0Z4 Bypass Descending Colon to Cutaneous, Open Approach (ICD-10-PCS; 2017-11-20 19:06)
PROC: 0JH60WZ Insertion of Totally Implantable Vascular Access Device into Chest Subcutaneous Tissue and Fascia, Open Approach (ICD-10-PCS; 2017-11-24)
PROC: 02HV33Z Insertion of Infusion Device into Superior Vena Cava, Percutaneous Approach (ICD-10-PCS; 2017-11-24)
DX: C18.7 Malignant neoplasm of sigmoid colon (principal); K56.699 Other intestinal obstruction unspecified as to partial versus complete obstruction; C78.6 Secondary malignant neoplasm of retroperitoneum and peritoneum; K57.32 Diverticulitis of large intestine without perforation or abscess without bleeding; R63.4 Abnormal weight loss; M54.9 Dorsalgia, unspecified; G89.29 Other chronic pain; M47.9 Spondylosis, unspecified; K20.9 Esophagitis, unspecified; K29.70 Gastritis, unspecified, without bleeding; K44.9 Diaphragmatic hernia without obstruction or gangrene; K64.4 Residual hemorrhoidal skin tags; K64.8 Other hemorrhoids; K29.80 Duodenitis without bleeding
CPT/HCPCS: 71045; 71260; 74177; 77001; 80048; 80053; 81275; 81276; 82378; 82948; 83605; 83690; 85025; 85610; 85730; 86850; 86900; 86901; 88305; 88307; 88309; 93005; 94150; 96361; 96374; 96375; C1788; J0330; J0690; J0744; J1100; J1644; J1650; J2250; J2270; J2370; J2405; J2710; J3010; J3370; J7030; J7120; Q9967

== ENCOUNTER 2018-02-20 18:49 | Emergency (ER) | payer OTHER ==
[~2018-02-20 18:49] MED LIST: NORC5TAB PO
[2018-02-20 19:18] VITALS: BP 161/91; PULSE 84; RESP 18; TEMP 98.4; O2SAT 99
--- NOTE | 2018-02-20 21:35 | PD ---
HPI Chief Complaint: GI Complaint Time Seen by Provider: 20:52 Travel History International Travel<30 days: No Contact w/Intl Traveler<30days: No Traveled to known affect area: No History of Present Illness HPI Patient is a 52-year-old male who recently discovered stage IV colon cancer resected colostomy by Dr. Garrison and now he started chemotherapy at the [facility] 3 weeks ago. He is now having nausea.. He says his colostomy bag is filling up with liquid stool and he feels dehydrated and weak in general. he has not seen by his doctor for this is complaint He is coming in he has diarrhea malaise , no focal pain , he has no change in the color of the stool , but he says it is more liquid and he has nausea he is not feeling hungry .. he is not been eating is convinced he is dehydrated. He is on p.o. chemotherapy twice daily as well.. Every 2 weeks he gets an IV dose of the chemo -->his last IV dose of chemo was February 08..at the [facility] Past Medical History Anxiety: No Depression: No Cancer: Yes (STAGE 4 COLON) Cardiovascular Problems: No Diminished Hearing: No Diverticulitis: Yes Endocrine: No Genitourinary: No Immune Disorder: No Musculoskeletal: Yes Neurologic: No Psychiatric: No Reproductive: No Respiratory: No Immunizations Current: Yes Past Surgical History Abdominal Surgery: No Cardiac Surgery: No Ear Surgery: No Endocrine Surgery: No Eye Surgery: No Genitourinary Surgery: Yes (COLON CANCER REMOVAL) Gynecologic Surgery: No Oral Surgery: No Thoracic Surgery: No Other Surgery: Yes (inguinal hernia and scrotal repair) Social History Alcohol Use: No Tobacco Use: No Substance Use: No Allergies-Medications (Allergen,Severity, Reaction): Coded Allergies: No Known Allergies (Unverified , 02/20/18) Reported Meds & Prescriptions Reported Meds & Active Scripts Active [place] (Hydrocodone-Acetaminophen) 5 Mg-325 Mg Tab 1 Tab PO Q4H PRN Review of Systems Except as stated in HPI: all other systems reviewed are Neg Gastrointestinal: Positive: Diarrhea Physical Exam Narrative GENERAL: Nontoxic-appearing listless SKIN: Warm and dry. HEAD: Atraumatic. Normocephalic. EYES: Pupils equal and round. No scleral icterus. No injection or drainage. ENT: No nasal bleeding or discharge. Mucous membranes pink and moist. NECK: Trachea midline. No JVD. CARDIOVASCULAR: Regular rate and rhythm. RESPIRATORY: No accessory muscle use. Clear to auscultation. Breath sounds equal bilaterally. GASTROINTESTINAL: Abdomen --patient has a colostomy bag full of normal looking stool soft formed in his left periumbilical area MUSCULOSKELETAL: Extremities without clubbing, cyanosis, or edema. No obvious deformities. NEUROLOGICAL: Awake and alert. No obvious cranial nerve deficits. Motor grossly within normal limits. Five out of 5 muscle strength in the arms and legs. Normal speech. PSYCHIATRIC: Appropriate mood and affect; insight and judgment normal. Data Data Last Documented VS Vital Signs Date Time Temp Pulse Resp B/P (MAP) Pulse Ox O2 Delivery O2 Flow Rate FiO2 02/20/18 19:18 98.4 84 18 161/91 (114) 99 Orders Orders Complete Blood Count With Diff (02/20/18 21:31) Comprehensive Metabolic Panel (02/20/18 21:31) Lipase (02/20/18 21:31) Sodium Chlor 0.9% 1000 Ml Inj (Ns 1000 M (02/20/18 21:45) Ondansetron Odt (Zofran Odt) (02/20/18 21:45) Sodium Chlor 0.9% 1000 Ml Inj (Ns 1000 M (02/20/18 22:00) Labs Laboratory Tests Test 02/20/18 21:40 White Blood Count 7.1 TH/MM3 Red Blood Count 3.74 MIL/MM3 Hemoglobin 10.0 GM/DL Hematocrit 30.4 % Mean Corpuscular Volume 81.2 FL Mean Corpuscular Hemoglobin 26.8 PG Mean Corpuscular Hemoglobin Concent 33.1 % Red Cell Distribution Width 17.9 % Platelet Count 140 TH/MM3 Mean Platelet Volume 8.0 FL Neutrophils (%) (Auto) 61.3 % Lymphocytes (%) (Auto) 26.6 % Monocytes (%) (Auto) 9.8 % Eosinophils (%) (Auto) 1.2 % Basophils (%) (Auto) 1.1 % Neutrophils # (Auto) 4.4 TH/MM3 Lymphocytes # (Auto) 1.9 TH/MM3 Monocytes # (Auto) 0.7 TH/MM3 Eosinophils # (Auto) 0.1 TH/MM3 Basophils # (Auto) 0.1 TH/MM3 CBC Comment DIFF FINAL Differential Comment Blood Urea Nitrogen 12 MG/DL Creatinine 1.13 MG/DL Random Glucose 86 MG/DL Total Protein 5.9 GM/DL Albumin 3.4 GM/DL Calcium Level 8.4 MG/DL Alkaline Phosphatase 69 U/L Aspartate Amino Transf (AST/SGOT) 13 U/L Alanine Aminotransferase (ALT/SGPT) 22 U/L Total Bilirubin 0.7 MG/DL Sodium Level 139 MEQ/L Potassium Level 3.8 MEQ/L Chloride Level 105 MEQ/L Carbon Dioxide Level 25.4 MEQ/L Anion Gap 9 MEQ/L Estimat Glomerular Filtration Rate 69 ML/MIN Lipase 262 U/L MDM Medical Decision Making Medical Screen Exam Complete: Yes Emergency Medical Condition: Yes Differential Diagnosis Patient could have dehydration could be anemic from chemo chemo induced diarrhea dehydration chemo reaction in general from myelosuppression bone marrow could be anemic from a cytopenia could be viral Narrative Course Patient is given 2 L of fluid he feels much better his chemistry is within normal limits no sign of active dehydration or renal prerenal dehydration he is discharged to follow-up with his doctors in the a.m. Diagnosis Primary Impression: Chemotherapy induced diarrhea Patient Instructions: Acute Diarrhea (ED), General Instructions Scripts Ondansetron Odt (Zofran Odt) 4 Mg Tab 4 MG SL Q6HR Y for Nausea/Vomiting, #20 TAB 0 Refills Prov: Gregorio Yarbrough MD 02/21/18 Disposition: 01 DISCHARGE HOME Condition: Good Gregorio Yarbrough MD Feb 20, 2018 21:35
[2018-02-20] MEDS ORDERED: ONDANSETRON ODT 4 MG TAB PO ONE (21:45)
[2018-02-20] MEDS ORDERED: SODIUM CHLOR 0.9% 1000 ML INJ 1,000 ML IV ONE ×2 (21:45→22:00)
[2018-02-20 21:57] LABS: AUTOMATED NEUTROPHIL # 4.4 TH/MM3 (1.8-7.7); BASOPHIL # 0.1 TH/MM3 (0-0.2); BASOPHIL % 1.1 % (0.0-2.0); EOSINOPHIL # 0.1 TH/MM3 (0-0.4); EOSINOPHIL % 1.2 % (0.0-4.0); HEMATOCRIT 30.4 % (39.0-51.0); LYMPH % 26.6 % (9.0-44.0); LYMPHOCYTE # 1.9 TH/MM3 (1.0-4.8); MEAN CELL VOLUME 81.2 FL (80.0-100.0); MEAN CORPUSCULAR HEMOGLOBIN 26.8 PG (27.0-34.0); MEAN CORPUSCULAR HGB CONC 33.1 % (32.0-36.0); MONO % 9.8 % (0.0-8.0); MONOCYTE # 0.7 TH/MM3 (0-0.9); NEUT % 61.3 % (16.0-70.0); PLATELET COUNT 140 TH/MM3 (150-450); RED BLOOD COUNT 3.74 MIL/MM3 (4.50-5.90); RED CELL DISTRIBUTION WIDTH 17.9 % (11.6-17.2); WHITE BLOOD COUNT 7.1 TH/MM3 (4.0-11.0)
[2018-02-20 22:19] LABS: ALBUMIN 3.4 GM/DL (3.4-5.0); AST (GOT) 13 U/L (15-37); BICARBONATE 25.4 MEQ/L (21.0-32.0); BLOOD UREA NITROGEN 12 MG/DL (7-18); CALCIUM 8.4 MG/DL (8.5-10.1); CHLORIDE 105 MEQ/L (98-107); CREATININE 1.13 MG/DL (0.60-1.30); GLOMERULAR FILTRATION RATE 69 ML/MIN (>89); GLUCOSE,RANDOM 86 MG/DL (74-106); SODIUM (NA) 139 MEQ/L (136-145)
[2018-02-20 22:23] LABS: ALKALINE PHOSPHATASE 69 U/L (45-117); ALT (GPT) 22 U/L (12-78); TOTAL BILIRUBIN ADULT 0.7 MG/DL (0.2-1.0); TOTAL PROTEIN 5.9 GM/DL (6.4-8.2)
[2018-02-21] MEDS ORDERED: ZOFR4TAB3 SL (00:12)
== END 2018-02-21 00:31 | disposition home or self-care (01) ==
LOC: NEPE 18:49
DX: K52.1 Toxic gastroenteritis and colitis (principal); T45.1X5A Adverse effect of antineoplastic and immunosuppressive drugs, initial encounter; C18.9 Malignant neoplasm of colon, unspecified; R53.1 Weakness; R53.81 Other malaise
CPT/HCPCS: 80053; 83690; 85025; 96360; 96361; 99284; J7030